=== PATIENT | female | born 1995 | race Caucasian/White ===

== ENCOUNTER 2018-10-14 10:06 | Emergency (ER) | payer MEDICAID, SELFPAY ==
[2018-10-14 10:07] VITALS: BP 94/57; PULSE 94; RESP 18; TEMP 36.6; O2SAT 98; BMI 25.2
--- NOTE | 2018-10-14 10:30 | ED.DCSUM_ITS ---
- ER Visit Summary Date of Service: 10/14/18 Chief Complaint: Runny nose and cough History of Present Illness: The patient is a 23 F no significant past medical history. Currently is 7 months due 12/22/2018. Patient states approximately 5 days has had a cough that is nonproductive. Nasal drainage is clear. Subjective fever. No shortness of breath. She had no abdominal pain. No vaginal bleeding. States she still feels the baby moving. States that she was urinating normally yesterday. Physical Examination: Very well-appearing young female. Coming by her young son. Vital signs stable initial blood pressure 94/57 she states she normally runs around 100. Heart rate 94. Pulse ox 90% on room air no signs of hypoxia. She is in no distress. H EENT exam normal. TMs normal. Posterior pharynx moist and pink. No erythema or exudate. No trouble swallowing or breathing. Neck nontender no lymphadenopathy no meningismus. Lungs clear to auscultation bilaterally. No rales rhonchi or wheezing. Heart regular rate and rhythm no murmur. Abdomen soft. Nondistended normal bowel sounds. Gravid nontender uterus. Patient moving all 4 extremities. Calves are nontender without edema or cords. Back nontender. Neurologically she is awake and alert. Test Results: None Emergency Department Course and Treatment: Viral URI. She is . She is comfortable just orally hydrating herself. Clinically she does not look dehydrated. Treatment Plan: Fluids and rest. [id number] symptomatic treatment for URI. Zofran as needed for nausea. Disposition: Discharge Impression: Viral URI 7 months This note was generated with [employer] dictation software. It may contain incorrect words, spelling, and punctuation that were not noted in review of the chart prior to signing ED Disposition - Plan for ED Patient: Chief Complaint: Cold Sx Referrals: Cliff Beltran MD [Primary Care Provider] -
--- NOTE | 2018-10-14 10:30 | ED.DEP ---
ED Disposition - Plan for ED Patient: Disposition: Home or Assisted Living Chief Complaint: Cold Sx Instructions: ED Upper Resp Infec No Abx Tx Prescriptions: Ondansetron [Zofran Odt] 4 mg PO Q8H PRN PRN #10 tab PRN Reason: Nausea Referrals: Cliff Beltran MD [Primary Care Provider] - As Needed Additional Instructions: The of fluids and rest. Zofran as needed for nausea. Follow-up with your doctors as needed.
[2018-10-14 10:47] VITALS: BP 124/62; PULSE 73; RESP 15; O2SAT 100
--- OUTSIDE RECORDS SUMMARY | 2018-12-19 01:30 | XMS RPT_ITS ---
:1995 Author Organization OHIP Care Team Providers Name Role Phone NATY SUAZO ([facility]) Attending Unavailable HEATH CALL Attending Unavailable HEATH CALL Referring Unavailable ZAHIRA REBOLLAR (CNM) Attending Unavailable HEATH CALL Referring Unavailable ONELIA LORENZ Attending Unavailable HEATH CALL Referring Unavailable KELECHI, ONELIA A Referring Unavailable DARION LOZANO Attending Unavailable PATTY HOPE Referring Unavailable HEATH CALL Attending Unavailable DARION LOZANO Referring Unavailable LORENZ, ONELIA A Referring Unavailable KELECHI, ONELIA A Attending Unavailable ANANT HOPERE Referring Unavailable HEATH CALL Attending Unavailable ZAHIRA REBOLLAR (CNM) Attending Unavailable HEATH CALL Referring Unavailable KARLENE KEEN Attending Unavailable HEATH CALL Referring Unavailable ZAHIRA REBOLLAR (CNM) Referring Unavailable ZAHIRA REBOLLAR (CNM) Attending Unavailable HEATH CALL Referring Unavailable James Catherine Attending Unavailable Cliff Beltran Primary Care Unavailable PROBLEMS PROBLEMS DATE TYPE CONDITION / CODE ATTENDING STATUS SOURCE 10/05/2018 Active Encounter for Active [facility] supervision of [facility] normal , Repository unspecified, second trimester / Z34.92(ICD-10) 10/05/2018 Active 27 weeks gestation NA Active [facility] of / [facility] Z3A.27(ICD-10) Repository 05/21/2018 Active Other diseases of Active [facility] blood and [facility] blood-forming Repository organs and certain disorders involving the immune mechanism complicating , unspecified trimester / O99.119(ICD-10) 05/21/2018 Active Thrombocytopenia, NA Active [facility] unspecified / [place] D69.6(ICD-10) Repository 07/20/2018 Active Encounter for Active [facility] supervision of [facility] other normal Repository , second trimester / Z34.82(ICD-10) 07/20/2018 Active 17 weeks gestation NA Active [facility] of / [place] Z3A.17(ICD-10) Repository 06/16/2018 Active Encounter for Active [facility] screening [place] for nuchal Repository translucency / Z36.82(ICD-10) 06/16/2018 Active Encounter for Active [facility] [place] screening, Repository unspecified / Z36.9(ICD-10) 06/16/2018 Active 12 weeks gestation NA Active [facility] of / [place] Z3A.12(ICD-10) Repository 06/16/2018 Active Family history of [facility] other congenital [place] malformations, Repository deformations and chromosomal abnormalities / Z82.79(ICD-10) 05/13/2018 Active Encounter for [facility] supervision of [facility] other normal Repository , unspecified trimester / Z34.80(ICD-10) 04/22/2018 Active Unknown / NA Active [facility] UNK(Unknown) [place] Repository PROCEDURES PROCEDURES No Procedure Records FoundRESULTS RESULTS PROGRESS Observed: 10/21/2018 Status: COMPLETED Source: [place] 11:03 AM [facility] REPOSITORY HNO ID: [id number] Author: Zahira Rebollar Service: (none) Author Type: Drill Sharpener Type: Progress Notes Filed: 10/21/2018 11:04 AM Note Text: CM - S: Shobha Rosales Titler presents for a routine OB visit at 31w1d. She denies LOF, VB, DFM or cramping/contractions. Been sick 2nd time in a few weeks. Had vomiting x 3 days. Now reports some URI sumtpoms and stuffiness. + Cough occasionally, denies fever. Takes pepcid for heartburn - had breakthrough heartburn last night for the first time. Reports some increased cracking on her hands this winter - desires a discussion re: salves/lotions/ointments that she can use for her hands. O: See flow sheet Gen: A+O x 3, NAD Abdomen: NT x 4 quadrants, S=D Extremities: No edema, bilateral hands with fine cracks and some erythema. A/P: 31w1d IUP. Normal . RTO 2 Weeks for follow up. Call with LOF, VB, DFM or cramping/contractions. 1. 31 weeks gestation of -[facility] teaching and PTL precautions reviewed. -Natural remedies for dry skin on hands reviewed - URINE OB DIP B/O Zahira Rebollar APRN.CNM EMERGENCY DEPARTMENT Observed: 10/14/2018 Status: F Source: [place] SUMMARY 4:05 PM [facility] REPOSITORY [facility] Medical Records Department [address] [place] [address] Emergency Department Summary 10/14/18 1026 MR#: [id number] Acct: [id number] Name: TITLERSHOBHA Rep #: [id number] : 1995 23 From: James Catherine MD PCP: Cliff Beltran MD Status: DEP ER - ER Visit Summary Date of Service: 10/14/18 Chief Complaint: Runny nose and cough History of Present Illness: The patient is a 23 F no significant past medical history. Currently is 7 months due 12/22/2018. Patient states approximately 5 days has had a cough that is nonproductive. Nasal drainage is clear. Subjective fever. No shortness of breath. She had no abdominal pain. No vaginal bleeding. States she still feels the baby moving. States that she was urinating normally yesterday. Physical Examination: Very well-appearing young female. Coming by her young son. Vital signs stable initial blood pressure 94/57 she states she normally runs around 100. Heart rate 94. Pulse ox 90% on room air no signs of hypoxia. She is in no distress. H EENT exam normal. TMs normal. Posterior pharynx moist and pink. No erythema or exudate. No trouble swallowing or breathing. Neck nontender no lymphadenopathy no meningismus. Lungs clear to auscultation bilaterally. No rales rhonchi or wheezing. Heart regular rate and rhythm no murmur. Abdomen soft. Nondistended normal bowel sounds. Gravid nontender uterus. Patient moving all 4 extremities. Calves are nontender without edema or cords. Back nontender. Neurologically she is awake and alert. Test Results: None Emergency Department Course and Treatment: Viral URI. She is . She is comfortable just orally hydrating herself. Clinically she does not look dehydrated. Treatment Plan: Fluids and rest. Adiu-rlm-ptbenki symptomatic treatment for URI. Zofran as needed for nausea. Disposition: Discharge Impression: Viral URI 7 months This note was generated with [employer] dictation software. It may contain incorrect words, spelling, and punctuation that were not noted in review of the chart prior to signing ED Disposition - Plan for ED Patient: Chief Complaint: Cold Sx Referrals: Cliff Beltran MD [Primary Care Provider] - What to do if you have Problems For any increased pain, shortness of breath, bleeding, nausea or vomiting, chest pain, or any unexpected problems, contact your Primary Care Provider. Call [facility] ([phone]) or report to the closest Emergency Room. Call 911 if necessary. 10/14/18 1465 <Electronically signed by James Catherine MD> Date James Catherine MD Cosigner Signature (If Indicated): Date CC: Cliff Beltran MD DISCHARGE INSTRUCTION Observed: 10/14/2018 Status: F Source: [place] 4:04 PM [facility] REPOSITORY [facility] Medical Records Department [address] [place] [address] Discharge Instruction 10/14/18 1030 MR#: [id number] Acct: [id number] Name: SHOBHA CHRIS Rep #: [id number] : 1995 23 From: James Catherine MD PCP: Cliff Beltran MD Status: DEP ER ED Disposition - Plan for ED Patient: Disposition: Home or Assisted Living Chief Complaint: Cold Sx Instructions: ED Upper Resp Infec No Abx Tx Prescriptions: Ondansetron [Zofran Odt] 4 mg PO Q8H PRN PRN #10 tab PRN Reason: Nausea Referrals: Cliff Beltran MD [Primary Care Provider] - As Needed Additional Instructions: The of fluids and rest. Zofran as needed for nausea. Follow-up with your doctors as needed. What to do if you have Problems For any increased pain, shortness of breath, bleeding, nausea or vomiting, chest pain, or any unexpected problems, contact your Primary Care Provider. Call [facility] ([phone]) or report to the closest Emergency Room. Call 911 if necessary. 10/14/18 1604 <Electronically signed by James Catherine MD> Date James Catherine MD Cosigner Signature (If Indicated): Date CC: Cliff Beltran MD CBC AND DIFFERENTIAL Collected: 10/05/2018 Status: F Source: [place] 11:[address] [facility] REPOSITORY TYPE CODE TESTS RESULT OUT OF REFERENCE UNITS RANGE LAB WBC 3.70-11.00 k/uL WBC High 12.44 LAB RBC 3.90-5.20 m/uL Low RBC 3.77 LAB HGB 11.5-15.5 g/dL Hemoglobin 11.7 LAB HCT 36.0-46.0 % Low Hematocrit 35.4 LAB MCV 80.0-100.0 fL MCV 93.9 LAB MCH 26.0-34.0 pG MCH 31.0 LAB MCHC 30.5-36.0 g/dL MCHC 33.1 LAB RDWCV 11.5-15.0 % RDW-CV 14.4 LAB PLTCT 150-400 k/uL Low Platelet Count 139 LAB MPV 9.0-12.7 fL MPV 11.8 LAB ANEUT % Neut% 77.1 LAB AANEUT 1.45-7.50 k/uL Abs Neut High 9.59 LAB ALYMP % Lymph% 14.1 LAB AALYMP 1.00-4.00 k/uL Abs Lymph 1.75 LAB AMONO % [place]% 8.1 LAB AAMONO <0.87 k/uL Abs [place] High 1.01 LAB AEOS % Eosin% 0.5 LAB AAEOS <0.46 k/uL Abs Eosin 0.06 LAB ABASO % Baso% 0.2 LAB AABASO <0.11 k/uL Abs Baso 0.03 LAB AUNRBC 0 /100 WBC NRBCs 0.0 LAB ABNRBC <0.01 k/uL Absolute nRBC <0.01 LAB DTYP DTYPE Auto Diff Performed By: #### CBCDIF #### [facility] [address] [place], [place] [address] 50G, 1HR GEST. Collected: 10/05/2018 Status: F Source: [place] GSCRN 11:27 AM [facility] REPOSITORY TYPE CODE TESTS RESULT OUT OF REFERENCE UNITS RANGE LAB GLUP 74-134 mg/dL Glucose 103 Screen, Preg Result Comment: [place] [employer] ([place]) guidelines state a gestational diabetes mellitus positive screen is made, in women not previously diagnosed with overt diabetes, when the 1 hr plasma glucose level is equal to or above 140 mg/dL. The [facility] [place] [facility] recommends a 135 mg/dL cutoff. Performed By: #### GLTGST #### [facility] [address], [place] [address] PROGRESS Observed: 09/23/2018 Status: COMPLETED Source: [place] 10:11 AM [place] [place] [place] REPOSITORY HNO ID: [id number] Author: Zahira Rebollar Service: (none) Author Type: Drill Sharpener Type: Progress Notes Filed: 09/23/2018 10:12 AM Note Text: CM - S: Shobha Rosales Titler presents for a routine OB visit at 27w1d. She denies LOF, VB, DFM or cramping/contractions. Patient reports throwing up last 24 hours, can keep crackers, water and Gatorade down this morning. Reports sore throat preceded her vomiting. Feels feverish, but has not taken temperature at home. Thermometer is packed away, patient is in the process of moving. Denies oliguria. Patient reports some lower abdominal crmaping/muscle strain from throwing up. LARC declination signed. Depression screening done, low risk. O: See flow sheet Gen: A+O x 3, NAD, Mucus membranes moist, lips dry and slightly cracked Abdomen: NT x 4 quadrants, S=D Extremities: No edema noted A/P: 27w1d IUP. Normal . RTO 2 Weeks for follow up. Call with LOF, VB, DFM or cramping/contractions. 1. Encounter for supervision of normal in second trimester, unspecified -1 hour GCT deferred to next week, patient can go to lab and have drawn at her convenience once she is not vomiting/sick -C teaching reviewed, PTL precautions reviewed -To continue PO hydration and BRAT diet as tolerated - URINE OB DIP B/O - CBC + DIFF; Future - GEST GLUC SCREEN, 1-HR, 50 GM, NON-FASTING; Future 2. 27 weeks gestation of Zahira Rebollar APRN.CNM SBIRT Shobha Rosales Titler was given the 's screening tool. Shobha answered as follows: OB Opioid Screening - Last Recorded (since 12/27/2017) Did any of your parents have a problem with alcohol or other drug use? No Does your partner have a problem with alcohol or other drug use? No In the past, have you had difficulties in your life because of alcohol or other drugs, including prescription medications? No In the past month have you drunk any alcohol or used other drugs? No Are you taking medication for pain during the either prescribed or not? No Based on the screen and further questions, she is considered at Low risk due to:No past or current use. Positive reinforcement of current behavior. Zahira Rebollar APRN.CNM PROGRESS Observed: 08/18/2018 Status: COMPLETED Source: [place] 9:[address] [facility] [place] REPOSITORY HNO ID: [id number] Author: Xiomy Meadows Service: (none) Author Type: Nurse Practitioner Type: Progress Notes Filed: 08/18/2018 9:31 AM Note Text: Subjective HPI Pt presents with c/o right eye irritation x 1.5 days. Thought contacts had irritated eye so took them out yesterday. This am right eye was matted shut and has had yellow drainage since then. Denies fever, chills, vision changes, eye pain, URI sx. Review of Systems Constitutional: Negative for chills and fever. HENT: Negative. Eyes: Positive for discharge and redness. Negative for blurred vision, double vision, photophobia and pain. Skin: Negative. Objective Physical Exam Constitutional: She is oriented to person, place, and time and well-developed, well-nourished, and in no distress. No distress. HENT: Head: Normocephalic. Right Ear: Hearing, tympanic membrane, external ear and ear canal normal. Left Ear: Hearing, tympanic membrane, external ear and ear canal normal. Nose: Nose normal. No mucosal edema. Mouth/Throat: Uvula is midline, oropharynx is clear and moist and mucous membranes are normal. No oropharyngeal exudate. Eyes: Pupils are equal, round, and reactive to light. EOM are normal. Right eye exhibits discharge. Left eye exhibits no discharge. Right conjunctiva is injected. Left conjunctiva is not injected. Pupils unequal: vision 20/20 via nedra card. Neck: Neck supple. Cardiovascular: Normal rate, regular rhythm and normal heart sounds. Exam reveals no gallop and no friction rub. No murmur heard. Pulmonary/Chest: Effort normal and breath sounds normal. No respiratory distress. She has no wheezes. She has no rales. Neurological: She is alert and oriented to person, place, and time. Skin: Skin is warm and dry. She is not diaphoretic. BP 100/60 Pulse 78 Temp 36.9 ?C (98.4 ?F) (Tympanic) Resp 16 Wt 62.6 kg (138 lb) LMP 03/17/2018 BMI 25.07 kg/m? .Patient presents with: Eye Problem: right eye burning x 2 days, matting x today-5 months PAST MEDICAL HISTORY Diagnosis Date - Asthma SPORTS INDUCED ASTHMA, NO INHALER USE SINCE 2007 - DEPRESSION - Migraine - Miscarriage 01/2013 - PMH - PAST MEDICAL HISTORY OF 05/06/99 normal color vision - depression - Recurrent UTI 07/25/2011 PAST SURGICAL HISTORY Procedure Laterality Date - [facility] ALLERGIES Patient has no known allergies. MEDICATIONS Ryaatsnw-Ht-Ezd-Fe-FA ( VITAMIN) tab Take 1 tablet by mouth. Mbdupmy-Dnnrpuatppqzu-Bdrbkhkv (EXCEDRIN MIGRAINE) 250-250-65 mg per tablet Take 1 tablet by mouth every 8 hours as needed. For migraine headaches. pediatric multivitamin no.76 (FLINTSTONES COMPLETE) chew Take by mouth. trimethoprim-polymyxin eye drops (POLYTRIM) ophthalmic solution Use 1 Drop in the right eye every 6 hours for 7 days. Use in the affected eye. FAMILY HISTORY Problem Relation Age of Onset - No Known Problems Mother - No Known Problems Father - No Known Problems Sister - No Known Problems Brother - No Known Problems Sister - No Known Problems Brother - Cervical Cancer Maternal Grandmother - other (gallbladder) Maternal Grandmother - Diabetes Maternal Grandfather - other (triple bypass) Maternal Grandfather - No Known Problems Paternal Grandmother - Alzheimer's Disease Paternal Grandfather - No Known Problems Son Social History Substance Use Topics - Smoking status: Current Every Day Smoker Years: 6.00 Types: Cigarettes - Smokeless tobacco: Never Used Comment: 1-2 cigarettes a day - Alcohol use No ASSESSMENT/PLAN: 1. Irritation of right eye - ICD9: 379.99, ICD10: H57.89 - POLYMYXIN B SULFATE 10,000 UNIT-TRIMETHOPRIM 1 MG/ML EYE DROPS Reviewed red flag SANDS acute eye. Pt verbalizes understanding. The patient is instructed to return or seek emergency treatment if symptoms become worse or with any acute change in condition. The patient verbalizes understanding and is in agreement with plan of care. Xiomy Meadows CNP CNOV Observed: 08/18/2018 Status: COMPLETED Source: [place] 8:30 AM [place] REPOSITORY [facility] TITLER,SHOBHA Rosales ([id number]) 1995 F Date Time Provider Department 08/18/18 8:30 AM XIOMY MEADOWS JEANINE During your visit today, we recorded the following information about you: Temperature Pulse Respiration Blood pressure 98.4 degrees 78/minute 16/minute 100/60 Weight 62.6 kg Xiomy Meadows APRN.CNP 08/18/2018 9:31 AM Signed Subjective HPI Pt presents with c/o right eye irritation x 1.5 days. Thought contacts had irritated eye so took them out yesterday. This am right eye was matted shut and has had yellow drainage since then. Denies fever, chills, vision changes, eye pain, URI sx. Review of Systems Constitutional: Negative for chills and fever. HENT: Negative. Eyes: Positive for discharge and redness. Negative for blurred vision, double vision, photophobia and pain. Skin: Negative. Objective Physical Exam Constitutional: She is oriented to person, place, and time and well-developed, well-nourished, and in no distress. No distress. HENT: Head: Normocephalic. Right Ear: Hearing, tympanic membrane, external ear and ear canal normal. Left Ear: Hearing, tympanic membrane, external ear and ear canal normal. Nose: Nose normal. No mucosal edema. Mouth/Throat: Uvula is midline, oropharynx is clear and moist and mucous membranes are normal. No oropharyngeal exudate. Eyes: Pupils are equal, round, and reactive to light. EOM are normal. Right eye exhibits discharge. Left eye exhibits no discharge. Right conjunctiva is injected. Left conjunctiva is not injected. Pupils unequal: vision 20/20 via nedra card. Neck: Neck supple. Cardiovascular: Normal rate, regular rhythm and normal heart sounds. Exam reveals no gallop and no friction rub. No murmur heard. Pulmonary/Chest: Effort normal and breath sounds normal. No respiratory distress. She has no wheezes. She has no rales. Neurological: She is alert and oriented to person, place, and time. Skin: Skin is warm and dry. She is not diaphoretic. BP 100/60 Pulse 78 Temp 36.9 ?C (98.4 ?F) (Tympanic) Resp 16 Wt 62.6 kg (138 lb) LMP 03/17/2018 BMI 25.07 kg/m? .Patient presents with: Eye Problem: right eye burning x 2 days, matting x today-5 months PAST MEDICAL HISTORY Diagnosis Date - Asthma SPORTS INDUCED ASTHMA, NO INHALER USE SINCE 2007 - DEPRESSION - Migraine - Miscarriage 01/2013 - PMH - PAST MEDICAL HISTORY OF 05/06/99 normal color vision - depression - Recurrent UTI 07/25/2011 PAST SURGICAL HISTORY Procedure Laterality Date - [facility] ALLERGIES Patient has no known allergies. MEDICATIONS Fdgmhkgt-Lq-Stj-Fe-FA ( VITAMIN) tab Take 1 tablet by mouth. Wkpuhvs-Puxvafepwmitf-Sktvoypz (EXCEDRIN MIGRAINE) 250-250-65 mg per tablet Take 1 tablet by mouth every 8 hours as needed. For migraine headaches. pediatric multivitamin no.76 (FLINTSTONES COMPLETE) chew Take by mouth. trimethoprim-polymyxin eye drops (POLYTRIM) ophthalmic solution Use 1 Drop in the right eye every 6 hours for 7 days. Use in the affected eye. FAMILY HISTORY Problem Relation Age of Onset - No Known Problems Mother - No Known Problems Father - No Known Problems Sister - No Known Problems Brother - No Known Problems Sister - No Known Problems Brother - Cervical Cancer Maternal Grandmother - other (gallbladder) Maternal Grandmother - Diabetes Maternal Grandfather - other (triple bypass) Maternal Grandfather - No Known Problems Paternal Grandmother - Alzheimer's Disease Paternal Grandfather - No Known Problems Son Social History Substance Use Topics - Smoking status: Current Every Day Smoker Years: 6.00 Types: Cigarettes - Smokeless tobacco: Never Used Comment: 1-2 cigarettes a day - Alcohol use No ASSESSMENT/PLAN: 1. Irritation of right eye - ICD9: 379.99, ICD10: H57.89 - POLYMYXIN B SULFATE 10,000 UNIT-TRIMETHOPRIM 1 MG/ML EYE DROPS Reviewed red flag SANDS acute eye. Pt verbalizes understanding. The patient is instructed to return or seek emergency treatment if symptoms become worse or with any acute change in condition. The patient verbalizes understanding and is in agreement with plan of care. Xiomy Meadows CNP Referring Provider: SELF [[id number]] Allergies As of Date: 08/18/2018 (No Known Allergies) Date Reviewed: 08/18/2018 Reviewed by: Ting Oviedo Ma - Fully Assessed Reason for Visit: Eye Problem [43] Cmt: right eye burning x 2 days, matting x today-5 months Reason For Visit History Recorded Primary Visit Diagnosis:Irritation of right eye [H57.89] Order(s):trimethoprim-polymyxin eye drops (POLYTRIM) ophthalmic solutionUse 1 Drop in the right eye every 6 hours for 7 days. Use in the affected eye.Disp: 1.4 mLRfl: 0 Prescriptions as of 08/18/2018 Sig: VITAMIN,CALCIUM,MINE* Take 1 tablet by mouth. ICXRZOA-WWFKRRMQMJQRF-CINIIKR* Take 1 tablet by mouth every * PEDIATRIC MULTIVITAMIN NO.76 * Take by mouth. POLYMYXIN B SULFATE 10,000 UN* Use 1 Drop in the right eye e* Problem List As Of Date 08/18/2018 Noted Resolved Recurrent UTI [N39.0] INVALID FOR*08/16/2014 More... Patient requested diagnostic testing [Z01.89] INVALID FOR*08/16/2014 More... History of asthma [Z87.09] INVALID FOR*05/04/2018 More... History of depression [Z86.59] INVALID FOR*05/04/2018 More... Migraine [G43.909] INVALID FOR*05/04/2018 Normal [Z34.90] INVALID FOR*04/12/2015 More... Hyperemesis [R11.10] INVALID FOR*08/16/2014 Hyperemesis gravidarum [O21.0] INVALID FOR*11/21/2014 Bacteriuria, asymptomatic in [O99.89,*INVALID FOR*04/12/2015 Thrombocytopenia complicating (HCC) [*INVALID FOR*04/12/2015 More... Support system deficit [Z65.8] INVALID FOR*05/04/2018 More... Uncertain dates, antepartum [Z34.90] INVALID FOR*05/04/2018 More... Tobacco use in , antepartum [O99.330] INVALID FOR*05/04/2018 More... Nausea/vomiting in [O21.9] INVALID FOR*05/04/2018 More... Tobacco use during , antepartum [O99.3*INVALID FOR* More... History of depression [Z87.59, Z86.5*INVALID FOR* More... Family history of anencephaly [Z82.79] INVALID FOR* More... Patient requested diagnostic testing [Z01.89] INVALID FOR* More... History of loss in prior , c*INVALID FOR* More... Thrombocytopenia affecting (HCC) [O99*INVALID FOR* More... Nonintractable migraine [G43.009] INVALID FOR* More... Group B streptococcal bacteriuria [R82.71] INVALID FOR* More... Prescriptions ordered this encounter Disp Refills Start End POLYMYXIN B SULFATE 10,000 UNIT-TRIM* 1.4 * 0 08/18/2018 08/25/2018 Route: RIGHT EYE Sig: Use 1 Drop in the right eye every 6 hours for 7 days. Use in the affected eye. Encounter Status:Closed by XIOMY MEADOWS CNP on 08/18/18 PROGRESS Observed: 07/28/2018 Status: COMPLETED Source: [place] 4:12 PM [facility] [place] REPOSITORY HNO ID: [id number] Author: Onelia Lorenz Service: (none) Author Type: Physician Type: Progress Notes Filed: 07/28/2018 4:13 PM Note Text: A millan? fetus in utero with symmetric measurements Adequate growth (AGA). Estimated Date of Delivery: 12/22/18 EGA = 19w0d The anatomy appears normal. There are no evident malformations and /or effusions. No genetic markers are noted. The amniotic fluid volume is within normal limits. The patient was counseled as to the sonographic findings. The limitations of ultrasound in detecting malformations and chromosomal anomalies has been addressed. Body mass index is 24.75 kg/m?. RECOMMENDATIONS: - Follow up ultrasound as clinically indicated - Genetic testing is negative sequential. PROGRESS Observed: 07/26/2018 Status: COMPLETED Source: [place] 10:11 AM [facility] REPOSITORY HNO ID: [id number] Author: Onelia Lorenz Service: (none) Author Type: Physician Type: Progress Notes Filed: 07/26/2018 10:11 AM Note Text: The patient presents for a requested ultrasound. A full report is available in the imaging tab in [facility]. Onelia Lorenz MD, PhD MFM taxation consultant, [facility] CNOV Observed: 07/20/2018 Status: COMPLETED Source: [place] 10:30 AM [facility] [place] REPOSITORY Office Visit ([facility]) TITLER,SHOBHA Rosales ([id number]) 1995 F Date Time Provider Department 07/20/18 10:30 AM LAB [facility] MOB LABMOB During your visit today, we recorded the following information about you: Onelia Lorenz MD 07/26/2018 10:11 AM Signed The patient presents for a requested ultrasound. A full report is available in the imaging tab in Epic. Onelia Lorenz MD, PhD MFM taxation consultant, [facility] Referring Provider: ONELIA LORENZ [[id number]] Allergies As of Date: 07/20/2018 (No Known Allergies) Date Reviewed: 07/20/2018 Reviewed by: Delmy Bey Ma - Fully Assessed Visit Diagnoses:Encounter for screening for nuchal translucency [Z36.82] Encounter for screening of mother [Z36.9] 12 weeks gestation of [Z3A.12] Family history of spina bifida [Z82.79] Encounter for supervision of other normal in second trimester [Z34.82] 17 weeks gestation of [Z3A.17] Thrombocytopenia affecting (HCC) [O99.119, D69.6] Order(s):SEQUENTIAL SCRN SCND TRIMESTER [SQSEQL2] Order #: [id number]. #:[id number] CBC [SQCBC] Order #: [id number]. #:[id number] Prescriptions as of 07/20/2018 Sig: [id number]-IUKPBJS* Take 1 tablet by mouth every * PEDIATRIC MULTIVITAMIN NO.76 * Take by mouth. Problem List As Of Date 07/20/2018 Noted Resolved Recurrent UTI [N39.0] INVALID FOR*08/16/2014 More... Patient requested diagnostic testing [Z01.89] INVALID FOR*08/16/2014 More... History of asthma [Z87.09] INVALID FOR*05/04/2018 More... History of depression [Z86.59] INVALID FOR*05/04/2018 More... Migraine [G43.909] INVALID FOR*05/04/2018 Normal [Z34.90] INVALID FOR*04/12/2015 More... Hyperemesis [R11.10] INVALID FOR*08/16/2014 Hyperemesis gravidarum [O21.0] INVALID FOR*11/21/2014 Bacteriuria, asymptomatic in [O99.89,*INVALID FOR*04/12/2015 Thrombocytopenia complicating (HCC) [*INVALID FOR*04/12/2015 More... Support system deficit [Z65.8] INVALID FOR*05/04/2018 More... Uncertain dates, antepartum [Z34.90] INVALID FOR*05/04/2018 More... Tobacco use in , antepartum [O99.330] INVALID FOR*05/04/2018 More... Nausea/vomiting in [O21.9] INVALID FOR*05/04/2018 More... Tobacco use during , antepartum [O99.3*INVALID FOR* More... History of depression [Z87.59, Z86.5*INVALID FOR* More... Family history of anencephaly [Z82.79] INVALID FOR* More... Patient requested diagnostic testing [Z01.89] INVALID FOR* More... History of loss in prior , c*INVALID FOR* More... Thrombocytopenia affecting (HCC) [O99*INVALID FOR* More... Nonintractable migraine [G43.009] INVALID FOR* More... Encounter Status:Closed by ONELIA LORENZ MD on 07/26/18 CBC Collected: 07/20/2018 Status: F Source: [facility] 10:22 AM [facility] REPOSITORY TYPE CODE TESTS RESULT OUT OF REFERENCE UNITS RANGE LAB WBC 3.70-11.00 k/uL WBC 10.22 LAB RBC 3.90-5.20 m/uL Low RBC 3.84 LAB HGB 11.5-15.5 g/dL Hemoglobin 12.1 LAB HCT 36.0-46.0 % Hematocrit 37.4 LAB MCV 80.0-100.0 fL MCV 97.4 LAB MCH 26.0-34.0 pG MCH 31.5 LAB MCHC 30.5-36.0 g/dL MCHC 32.4 LAB RDWCV 11.5-15.0 % RDW-CV 13.6 LAB PLTCT 150-400 k/uL Low Platelet Count 147 LAB MPV 9.0-12.7 fL MPV 12.5 LAB ABSNUC <0.01 k/uL Absolute nRBC <0.01 Performed By: #### CBC #### [facility] [address] [address] SEQUENT SCRN SECOND Collected: 07/20/2018 Status: F Source: [facility] PATIENTS ONLY 10:22 AM [facility] REPOSITORY TYPE CODE TESTS RESULT OUT OF REFERENCE UNITS RANGE LAB SE1PAP MoM 0.85 SE1 RENEE A LAB SE2AFP MoM 1.21 SE2 AFP LAB SE2HCG MoM 0.65 SE2 hCG LAB SE2UE3 MoM 1.03 SE2 Unconj uE3 LAB SE2INH MoM 0.95 SE2 Dimrc Inhibin A LAB SE1HCG MoM 0.52 SE1 hCG LAB SE2INT Screen Negative SE2 Interp Screen Negative LAB SE2SDN SE2 Scrn Rsk <1:53821 Dn Synd LAB SE2ADN SE2 Age Rsk 1:1000 Dn Snyd LAB SE2STS SE2 Scr Rsk <1:33696 Trsmy 13 LAB SE2STR SE2 Scr Rsk <1:19585 Trsmy18 LAB SE2SON SE2 Scr Rsk 1:6000 ONTD LAB SE2RS View Seq Scrn results in Second Trim Scanned Documents link when available. LAB SEQLRV SEQ Staff Reviewed by Review Yoel Salazar, Ph.D. Performed By: #### SEQL2 #### [facility] [address] [address] Observed: 07/20/2018 Status: F Source: [facility] URINE CULTURE 9:45 AM [facility] REPOSITORY Sp. Request/Comment: - Specimen received in preservative Culture Result - 10,000 - <50,000 CFU/ml Streptococcus agalactiae (Group B streptococcus) --> ABNORMAL ALERT No further workup --> ABNORMAL ALERT 10,000 - <50,000 CFU/ml --> ABNORMAL ALER T Enterococcus faecalis --> ABNORMAL ALERT Cephalosporins, clindamycin, and TMP- SMX are not effective for the treatment of enterococcal infections. --> ABNORMAL ALERT Insignificant colony count. N o further workup. --> ABNORMAL ALERT <10,000 CFU/ml --> ABNORMAL ALERT Lactose positive gram negative bacilli --> ABNORMAL ALERT Insignificant colony count. No further workup. --> ABNORMAL ALERT 10,000 - <50,000 CFU/ml Normal urogenital vargas Performed By: #### URCUL #### [facility] [address] [place], [place] [address] PROGRESS Observed: 06/18/2018 Status: COMPLETED Source: [facility] 3:17 PM [facility] REPOSITORY HNO ID: [id number] Author: Onelia Lorenz Service: (none) Author Type: Physician Type: Progress Notes Filed: 06/18/2018 3:17 PM Note Text: The patient presents for a requested ultrasound. A full report is available in the imaging tab in Epic. Onelia Lorenz MD, PhD MFM taxation consultant, [facility] PROGRESS Observed: 06/16/2018 Status: COMPLETED Source: [facility] 11:29 AM [facility] REPOSITORY HNO ID: [id number] Author: Onelia Lorenz Service: (none) Author Type: Physician Type: Progress Notes Filed: 06/16/2018 11:36 AM Note Text: MFM attending note: A single intrauterine gestational sac is noted with a regular outline. There is no decidual hemorrhage. The yolk sac is visualized and shows normal shape and echogenicity. A living single fetus is noted. The heart rate is within normal range. The CRL corresponds to the gestational age. Estimated Date of Delivery: 12/22/18 EGA = 13w0d The difference between the LMP dates and the sonar dates is < 7days. Therefore, I changed her MALCOLM to the LMP based MALCOLM. Negative NT screen for Trisomy 21. The sensitivity of nuchal translucency measurement for Trisomy 21 is ~60%. The anatomy appears normal in the areas visualized. T The FOB had a baby with anencephaly. The risk for ONTD is 2%. The skull is well visualized and appears normal. Endovaginal US was performed to visualize the skull, brain, and the spine. No anomalies are noted. The limitations of ultrasound have been discussed. RECOMMENDATIONS: - The patient requested the sequential screening. The test has been ordered - Ultrasound examination at 18 weeks to visualize the anatomy and reevaluate the neural axis Onelia Lorenz MD CNOV Observed: 06/16/2018 Status: COMPLETED Source: [facility] 10:30 AM [facility] REPOSITORY Office Visit (LABMOB) TITLER,SHOBHA Rosales ([id number]) 1995 F Date Time Provider Department 06/16/18 10:30 AM [facility] LAB[facility]B During your visit today, we recorded the following information about you: Onelia Lorenz MD 06/18/2018 3:17 PM Signed The patient presents for a requested ultrasound. A full report is available in the imaging tab in Epic. Onelia Lorenz MD, PhD MFM taxation consultant, [facility] Referring Provider: ONELIA LORENZ [[id number]] Allergies As of Date: 06/16/2018 (No Known Allergies) Date Reviewed: 06/16/2018 Reviewed by: Onelia Lorenz - Fully Assessed Visit Diagnoses:Encounter for screening for nuchal translucency [Z36.82] Encounter for screening of mother [Z36.9] 12 weeks gestation of [Z3A.12] Family history of spina bifida [Z82.79] Order(s):SEQUENTIAL SCRN FRST TRIMESTER [SQSEQL1] Order #: [id number]. #:[id number] Prescriptions as of 06/16/2018 Sig: CEPHALEXIN 500 MG CAPSULE Take 1 capsule by mouth four * Patient not taking: Reported on 06/01/2018 PEDIATRIC MULTIVITAMIN NO.76 * Take by mouth. Problem List As Of Date 06/16/2018 Noted Resolved Recurrent UTI [N39.0] INVALID FOR*08/16/2014 More... Patient requested diagnostic testing [Z01.89] INVALID FOR*08/16/2014 More... History of asthma [Z87.09] INVALID FOR*05/04/2018 More... History of depression [Z86.59] INVALID FOR*05/04/2018 More... Migraine [G43.909] INVALID FOR*05/04/2018 Normal [Z34.90] INVALID FOR*04/12/2015 More... Hyperemesis [R11.10] INVALID FOR*08/16/2014 Hyperemesis gravidarum [O21.0] INVALID FOR*11/21/2014 Bacteriuria, asymptomatic in [O99.89,*INVALID FOR*04/12/2015 Thrombocytopenia complicating (HCC) [*INVALID FOR*04/12/2015 More... Support system deficit [Z65.8] INVALID FOR*05/04/2018 More... Uncertain dates, antepartum [Z34.90] INVALID FOR*05/04/2018 More... Tobacco use in , antepartum [O99.330] INVALID FOR*05/04/2018 More... Nausea/vomiting in [O21.9] INVALID FOR*05/04/2018 More... Tobacco use during , antepartum [O99.3*INVALID FOR* More... History of depression [Z87.59, Z86.5*INVALID FOR* More... Family history of anencephaly [Z82.79] INVALID FOR* More... Patient requested diagnostic testing [Z01.89] INVALID FOR* More... History of loss in prior , c*INVALID FOR* More... Thrombocytopenia affecting (HCC) [O99*INVALID FOR* More... Encounter Status:Closed by ONELIA LORENZ MD on 06/18/18 SEQUENT SCRN FIRST Collected: 06/16/2018 Status: F Source: [facility] PATIENTS ONLY 10:28 AM CLINIC MAIN CAMPUS REPOSITORY TYPE CODE TESTS RESULT OUT OF REFERENCE UNITS RANGE LAB SE1PAP MoM 0.81 SE1 RENEE A LAB SE1HCG MoM 0.52 SE1 hCG LAB SE1INT Final result pending second Final trimester SE1 result pending sample Interp second trimester sample LAB SE1SDN SE1 Scrn <1:12783 Rsk Dn Synd LAB SE1ADN 1:770 SE1 Age Rsk Dn Synd LAB SE1STR SE1 Scr <1:28620 Rsk Trsmy18 LAB SE1ATR SE1 Age 1:2400 Rsk Trsmy18 LAB SE1RS View Seq Scrn results in First Trim Scanned Documents link when available. LAB SEQLRV SEQ Staff Reviewed by Review Quinton Rivera MD, PhD ([id number]) Performed By: #### SEQL1 #### [facility] [address] [place] [id number] PROGRESS Observed: 06/01/2018 Status: COMPLETED Source: [facility] 2:[address] [facility] [place] REPOSITORY HNO ID: [id number] Author: Zahira Rebollar Service: (none) Author Type: Drill Sharpener Type: Progress Notes Filed: 06/01/2018 2:50 PM Note Text: CM - S: Shobha Rosales Titler presents for a routine OB visit at 10w0d. She denies LOF, VB, or cramping/contractions. She reports that her N/V is improving. No other issues reported. Mild thrombocytopenia noted - will recheck CBC in 1-2 months. O: See flow sheet Gen: A+O x 3, NAD Abd: S=D, retroverted uterus noted on exam, +CA c/w dating noted on limited TAUS Extremities: No edema in LE A/P: 10w0d IUP. Mild thrombocytopenia. RTO 2 Weeks for follow up. Call with LOF, VB, DFM or cramping/contractions. 1. Encounter for supervision of other normal in first trimester -Discussion re: mild thrombocytopenia done including implications for labor and if continued low platelet count noted. Will reassess Plt count in 1-2 months. - URINE OB DIP B/O 2. 10 weeks gestation of -NT scan with first trimester screening in 2 weeks - URINE OB DIP B/O Zahira Rebollar APRN.JARAD CNCO Observed: 05/19/2018 Status: COMPLETED Source: [facility] 12:00 AM [facility] REPOSITORY Letter [facility] [address] [place], [place] [id number] 05/19/2018 RE: Shobha Rosales Titler : 1995 To Whom It May Concern: This is to verify that the above captioned patient is with a millan interuterine pregnancyand her Estimated Date of Delivery: 12/28/18. Sincerely, Kaia Molina CNM CYSTIC FIBROSIS SCR Collected: 05/13/2018 Status: F Source: [facility] 12:13 PM [facility] REPOSITORY TYPE CODE TESTS RESULT OUT OF REFERENCE UNITS RANGE LAB CFNGST CF [id number] (NOTE) Brandan Report Result Comment: Performing Pathologist: Tamy King M.D., Ph.D. RESULT: CFTR (RefSeq [id number]): No variant detected INTERPRETATION: The patient does not carry any of the 139 pathogenic genetic variants in the cystic fibrosis transmembrane regulator (CFTR) gene. A negative test result reduces the possibility that this individual is a carrier for cystic fibrosis (CF). However, this test does not detect all variants in the CFTR gene and it is possible that the patient could have a CFTR variant not included in this test. GUIDANCE: Cystic fibrosis (CF) is a multisystem genetic disease of sodium chloride transport that commonly involves the lungs, pancreas, intestines, liver, sweat glands and male reproductive system. CF is one of the most common inherited conditions among Caucasians and is diagnosed in approximately 1 in 3000 individuals in the [place] The condition is less common but occurs in all other racial and ethnic groups. CF has an autosomal recessive inheritance pattern and heterozygous carriers are unaffected. If both partners in a couple have a pathogenic variant, there is a 25% chance for a child to have CF. Genetic test results should be considered in the context of all relevant clinical information including patient phenotype, other laboratory results and family history. Genetic consultation may be beneficial for this individual and the family. Carrier Frequencies: : 1 in 28 Ashkenazi Gnosticism: 1 in 29 : 1 in 59 : 1 in 70 : 1 in 84 : 1 in 91 : 1 in 242 METHOD: The Illumina IVDeskDx Cystic Fibrosis 139-Variant Assay is a qualitative in vitro diagnostic system used to simultaneously detect 139 clinically relevant cystic fibrosis disease-causing mutations and variants of the cystic fibrosis transmembrane conductance regulator (CFTR) gene in genomic DNA isolated from human peripheral whole blood. The variants reported by the MiSeqDx Cystic Fibrosis 139-Variant Assay were specifically chosen because they represent the full set of clinically validated variants classified as CF- causing in the CFTR2 database at [facility], a product of the CFTR2 (Clinical and Functional Translation of CFTR) initiative. Briefly, multiplex short oligonucleotide primers are designed to hybridize to the genomic DNA regions of interests. Followed by primer extension and ligation, the ligation products are multiplex PCR amplified using primers that add index sequences for sample multiplexing, as well as common adapters required for cluster generation and sequencing on the MiSeqDx instrument. The MiSeq Staff Nurse Anesthetist processes base calls generated during primary analysis. Secondary analysis includes demultiplexing, FASTQ file generation, alignment, variant calling, and generation of variant-calling files (VCFs) containing information about CFTR variants found at specific positions in the reference genome. LIMITATIONS: The results should be used and interpreted in the context of a full clinical evaluation. The assay does not include all variants identified in the CFTR gene. Therefore, the failure to identify a variant does not guarantee that other CFTR variants are not present in the samples being analyzed. Variants identified by this assay vary in frequency among different populations. As with any hybridization-based assay, underlying variants in oligonucleotide-binding regions can affect the alleles being probed and, consequently, the calls made. The orientation of the PolyTG/PolyT variant, whether in cis/trans to the R117H variant, cannot be ascertained. PolyTG/PolyT are homopolymeric regions known to be difficult to interpret with sequence-based assays due to polymerase slippage. A 0.9% (4/448) miscall rate is reported for PolyTG/PolyT results. REFERENCES: [place] [employer] Committee on Genetics. ACOG committee opinion No. 486: Update on Carrier Screening for Cystic Fibrosis. Obstet Gynecol. 2011;117(4):4836-5555. Trey JL, Otto Diaz M, Esmer ALDRIDGE, Raphael PM. Cystic Fibrosis: A worldwide analysis of CFTR mutations-correlation with incidence data and application to screening. 2002. Hum Mutat 19:575-606. Meeta BARROW. Cystic fibrosis genetics: from molecular understanding to clinical application. Bernice Rev Sangita. 2015;16(1):45-56. Raphael PM, Sarita BJ, Lolly TB, Je FJ, Vicente C, Meeta BARROW, Jose Rafael MI, Liss CABALLERO, Gustabo J, Brady RB, MJ, Nir, III, PW. Guidelines for diagnosis of cystic fibrosis in newborns through older adults: Cystic Fibrosis Foundation consensus report. JPediatr. 2008;153:S4-S14. Werner WW, Meeta BARROW, Patrick NAGY, Fernanda SHERMAN, Elvin AVELAR, Lee JACOME. Laboratory standards and guidelines for population-based cystic fibrosis carrier screening. Sangita Med 2001;3:149-54. Matti SM, Sharyn JF, Lucio DL, Bob E, Meeta BARROW. CFTR-related disorders. Sully RA, William TC, Jama CR, Damien Donnelly, editors. Holdenws. [place] ([place]): [facility]; 2007. Available at www.ncbi.nlm.nih.gov/books/WDB2756. [Online] Updated Nov 16, 2007. Online Mendelian Inheritance in Man, OMIM. [facility], [place], [place]. Cystic fibrosis transmembrane conductance regulator; CFTR. JONY Number: *[id number]: 06/27/2014: World Wide Web URL: http://omim.org/ The Clinical and Functional Translation of CFTR (CFTR2). Available at http://www.cftr2.org/ [Online] MS Elvin, Meeta BARROW, Lee JACOME, Adriel WILLIAM, Patrick Donnelly, Suki M, Erica GE, Emery BW, Ty VM, Mary EM, Ramone CM, Fernanda SHERMAN, Joanie DR, Werner WW. Cystic fibrosis population carrier screenin revision of [employer] Gen[employer] mutation panel. Sangita Med. 2004;6:387-91. Performed By: #### CFNGS #### [facility] [address] [place], [place] [address] CBC Collected: 05/13/2018 Status: F Source: [facility] 12:[address] [facility] REPOSITORY TYPE CODE TESTS RESULT OUT OF REFERENCE UNITS RANGE LAB WBC 3.70-11.00 k/uL WBC 6.54 LAB RBC 3.90-5.20 m/uL RBC 4.00 LAB HGB 11.5-15.5 g/dL Hemoglobin 12.4 LAB HCT 36.0-46.0 % Hematocrit 36.2 LAB MCV 80.0-100.0 fL MCV 90.5 LAB MCH 26.0-34.0 pG MCH 31.0 LAB MCHC 30.5-36.0 g/dL MCHC 34.3 LAB RDWCV 11.5-15.0 % RDW-CV 12.9 LAB PLTCT 150-400 k/uL Low Platelet Count 145 LAB MPV 9.0-12.7 fL MPV 12.0 LAB ABSNUC <0.01 k/uL Absolute nRBC <0.01 Performed By: #### CBC, SYPHGX, RUBIGG, HBSAG, HIV12C #### [facility] [address] [address] SYPHILIS IGG WITH Collected: 05/13/2018 Status: F Source: [facility] 12:12 PM [place] REPOSITORY TYPE CODE TESTS RESULT OUT OF REFERENCE UNITS RANGE LAB SYPHQL Nonreactive Syphilis IgG, Nonreactive Qual Result Comment: No serological evidence of infection with T. pallidum. LAB SYPHLG AI Syphilis IgG <0.2 Result Comment: Antibody index is interpreted as follows: Non reactive SPECIMENS <=0.8 Weak reactive SPECIMENS 0.9 to 5.9 Reactive SPECIMENS >=6.0 Performed By: #### CBC, SYPHGX, RUBIGG, HBSAG, HIV12C #### [address] [address] RUBELLA IGG ANTIBODY Collected: 05/13/2018 Status: F Source: [facility] 12:12 [facility] REPOSITORY TYPE CODE TESTS RESULT OUT OF RANGE REFERENCE UNITS LAB RUBGQL Negative Abnormal Rubella IgG Positive Alert Ab, Qual Result Comment: Sample is considered positive for IgG antibodies to rubella virus. A positive result indicates previous exposure to Rubella virus or vaccination. LAB RUBQNT Index Value Rubella IgG Ab 1.43 Result Comment: Index values are interpreted as follows: Negative specimens <0.90 Equivocol specimens 0.90 to 0.99 Positive specimens >0.99 The magnitude of the measured result is not indicative of the amount of antibody present. Performed By: #### CBC, SYPHGX, RUBIGG, HBSAG, HIV12C #### [place] [address] [place] [address] HEPATITIS B SURF. AG Collected: 05/13/2018 Status: F Source: [place] 12:12 PM [facility] REPOSITORY TYPE CODE TESTS RESULT OUT OF REFERENCE UNITS RANGE LAB HBSAG Negative Hepatitis B Negative Surf. Ag Performed By: #### CBC, SYPHGX, RUBIGG, HBSAG, HIV12C #### [place] [address] [place] [address] HIV 12 COMBO (AG/AB) Collected: 05/13/2018 Status: F Source: [place] 12:12 PM [facility] REPOSITORY TYPE CODE TESTS RESULT OUT OF REFERENCE UNITS RANGE LAB HVAGAB Non Reactive HIV Non Reactive 12 Ag/Ab Result Comment: (NOTE) HIV Information: [place] Rev. Code 3701.243(E): This information has been disclosed to you from confidential records protected from disclosure by state law. You shall make no further disclosure of this information without the specific, written, and informed release of the individual to whom it pertains, or as otherwise permitted by state law. A general authorization for the release of medical or other information is not sufficient for the purpose of the release of HIV test results or diagnoses. Performed By: #### CBC, SYPHGX, RUBIGG, HBSAG, HIV12C #### [place] [address] TYPE AND SCR,PRENATL Collected: 05/13/2018 Status: F Source: [place] 12:11 PM [facility] REPOSITORY TYPE CODE TESTS RESULT OUT OF REFERENCE UNITS RANGE LAB %ABR O ABO/RH(D) POSITIVE LAB % Antibody NEG Screen Performed By: #### TSPN #### [place] [address] TOXICOLOGY SCREEN,UR Collected: 05/05/2018 Status: F Source: [place] 9:16 AM [facility] REPOSITORY TYPE CODE TESTS RESULT OUT OF REFERENCE UNITS RANGE LAB UPCP2 Negative Negative Phencyclidin e, Urine Result Comment: Cutoff threshold at 25 ng/mL. LAB UBENZ2 Negative Benzodiazepines, Ur Negative Result Comment: Cutoff threshold at 200 ng/mL. LAB UCOC2 Negative Cocaine, Negative Urine Result Comment: Cutoff threshold at 300 ng/mL. LAB UAMPH2 Negative Amphetamines, Urine Negative Result Comment: Cutoff threshold at 1000 ng/mL. LAB UTHC2 Negative Cannabinoids, Urine Negative Result Comment: Cutoff threshold at 50 ng/mL. LAB UOPI2 Negative Opiates, Negative Urine Result Comment: Cutoff threshold at 300 ng/mL. LAB UBARB2 Negative Barbiturates, Urine Negative Result Comment: Cutoff threshold at 200 ng/mL. LAB UETOH <11 mg/dL <11 Ethanol, Urine LAB UOXYC Negative Oxycodone, Negative Urine Result Comment: Cutoff threshold at 100 ng/mL. Comment: Immunoassay screen only. Cross reactivity with other substances can occur with immunoassay screening. Detection of any drug(s) in this urine toxicology panel is presumptive only. These tests are for med ica purposes only and should not be used for compliance monitoring, legal, or forensic use. Samples should be within normal physiological conditions (e.g. pH). This assay does not include adulteration/specimen validity testing. In clinical settings, confirmatory testing is at the practitioner's discretion [1]. If clinically indicated, confirmation by high specificity, quantitative methodology, which includes adulteration/spec imen validity testing, may be requested on the same specimen through Client Services ([phone]) if contacted within 48 hours of initial testing. [1]Substance Abuse and Mental Health Services Administration (2012). Clinical Drug Testing in Primary Care Technical Assistance Publication Series 32. Department of Health and Human Services, [place], p.10. These tests were developed and their performance characteristics determined by [facility] [place] ( [facility]). They have not been cleared or a pproved by the FDA. [facility] is regulated under CLIA as qualified to perform high complexity testing. These tests are used for clinical purposes. They should not be regarded as investigational or for research. Performed By: #### UTOX2 #### [facility] [address], [place] [address] Observed: 05/05/2018 Status: F Source: [place] URINE CULTURE 9:[address] [facility] REPOSITORY Sp. Request/Comment: - Best Practice Alert: To ensure optimal transport conditions and accurate culture results transfer urine specimens to rea top C and S preservative tube. Culture Result - >=100,000 CFU/ml Escherichia coli --> ABNORMAL ALERT ORGANISM: Escherichia coli METHOD: Minimum inhibitory concentration(Vitek) Antibiotic Interp MIGUEL Status Ampicillin SUSCEPTIBLE 8 F Gentamicin SUSCEPTIBLE <=1 F Trimeth sulfameth SUSCEPTIBLE <=20 F Cefazolin SUSCEPTIBLE <=4 F CLSI breakpoints for therapy of uncomplicated UTI's due to E.coli, K.pneumoniae, and P.mirabilis were applied and may be used to predict the activity of oral agents(cefaclor, cefdinir, cefpodoxime, cefp rozil, cefuroxime, cephalexin, loracarbef). Ciprofloxacin SUSCEPTIBLE <=0.25 F Nitrofurantoin SUSCEPTIBLE <=16 F Cefepime SUSCEPTIBLE <=1 F Piperacillin/Tazobac SUSCEPTIBLE <=4 F Ampicillin Sulbact SUSCEPTIBLE 4 F Ceftriaxone SUSCEPTIBLE <=1 F Meropenem SUSCEPTIBLE <=0.25 F Ertapenem SUSCEPTIBLE <=0.5 F Performed By: #### URCUL #### [facility] [address], [place] [address] GC/CHLAMYDIA AMPLIF Collected: 05/04/2018 Status: F Source: [facility] 3:15 PM [facility] REPOSITORY TYPE CODE TESTS RESULT OUT OF REFERENCE UNITS RANGE LAB GCCTSR GC/Chlam Amp Cervix Source LAB GCAMPL GC Negative Amplification for Neisseria gonorrhoeae by amplification. LAB CLAMPL Chlamydia Negative Amplif for Chlamydia trachomatis by amplification. Performed By: #### GCCT #### [address] [place], [place] [address] PROGRESS Observed: 05/04/2018 Status: COMPLETED Source: [facility] 2:27 PM [facility] REPOSITORY HNO ID: [id number] Author: Heath Call Service: (none) Author Type: Physician Type: Progress Notes Filed: 05/04/2018 3:32 PM Note Text: INITIAL OB ASSESSMENT Obstetric History T1 L1 SAB1 TAB1 Ectopic0 Multiple0 Live Births1 Name of Baby 1: Not recorded Date: 01/2013 GA: 10w0d Delivery: Not recorded Apgar1: Not recorded Apgar5: Not recorded Living: Not recorded Name of Baby 2: Carlitos Date: 03/03/15 GA: 37w6d Delivery: Vaginal, Spontaneous Delivery Apgar1: 8 Apgar5: 9 Living: Living Name of Baby 3: Not recorded Date: 06/2017 GA: 10w0d Delivery: Not recorded Apgar1: Not recorded Apgar5: Not recorded Living: Not recorded Name of Baby 4: Not recorded Date: Not recorded GA: Not recorded Delivery: Not recorded Apgar1: Not recorded Apgar5: Not recorded Living: Not recorded SBIRT Shobha R Titler was given the 4P's screening tool. Shobha answered as follows: OB Opioid Screening - Last Recorded (since 08/07/2017) Did any of your parents have a problem with alcohol or other drug use? No Does your partner have a problem with alcohol or other drug use? No In the past, have you had difficulties in your life because of alcohol or other drugs, including prescription medications? No In the past month have you drunk any alcohol or used other drugs? (!) Yes (1 drink March 31) Are you taking medication for pain during the either prescribed or not? No Based on the screen and further questions, she is considered at Low risk due to:Low level of use stopped prior to or immediately upon known . Positive reinforcement of current behavior. Plan to rescreen early third trimester. Heath Call MD HPI: Shobha Chris is a 22 year old female here to establish Obstetrical Care. Patient's last menstrual period was 03/17/2018. from OB Dating Form. Complaints: nausea without vomiting was planned. Obstetric History T1 L1 SAB1 TAB1 Ectopic0 Multiple0 Live Births1 Prior : never History of 4th degree laceration: No Patient's Risk Screening for delivery: History of abnormal pap: No Prior treatment for cervical dysplasia: none. History of STDs: None Tobacco use: Yes 1-2 cigs per day Caffeine use: Yes - 1 coffee AND pop per day Drug use: No Alcohol use: Yes - 1 drink on March 31 Multivitamin with Folic acid: Yes Occupation: OT per diem physical therapist assistant Gnosticism or heritage: No Would refuse blood transfusion if medically necessary: No No weight on file for this encounter. Patient BMI over 30? No Marital Status:Committed relationship Partner: Name: Prieto PAST MEDICAL HISTORY Diagnosis Date - Asthma SPORTS INDUCED ASTHMA, NO INHALER USE SINCE 2007 - DEPRESSION - Migraine - Miscarriage 01/2013 - PMH - PAST MEDICAL HISTORY OF 05/06/99 normal color vision - depression - Recurrent UTI 07/25/2011 PAST SURGICAL HISTORY Procedure Laterality Date - [facility] Current Outpatient Prescriptions on File Prior to Visit: pediatric multivitamin no.76 (FLINTSTONES COMPLETE) chew Take by mouth. Etonogestrel-Ethinyl Estradiol (NUVARING) 0.12-0.015 mg/24 hr vaginal ring Use 1 Each vaginally as directed. INSERT ONE(1) RING VAGINALLY AND LEAVE IN PLACE FOR 24 days, remove for 4 days and repeat (Patient not taking: Reported on 04/22/2018 ) propranolol (INDERAL) 80 mg tablet Take 1 tablet by mouth once daily. No current facility-administered medications on file prior to visit. Review of Systems: GENERAL: Negative for: Fever or Chills HEENT: Negative for: Headache, Impaired Vision, Ringing in Ears, Nosebleeds NECK: Negative for: Swelling, Pain, Stiffness RESPIRATORY: Negative for: Cough, Shortness of breath, Wheezing GASTROINTESTINAL: Negative for: Heartburn, Constipation, Diarrhea, Blood in stool, Vomiting MUSCULOSKELETAL: Negative for: Muscle or joint pain, stiffness, Joint swelling NEUROLOGIC/PSYCHIATRIC: Negative for: Weakness, Paralysis, Numbness, Tingling, Tremor, Anxiety, Depression, Memory loss SKIN: Negative for: Rash, Itching GENITOURINARY: Negative for: vaginal itching, vaginal discharge, hematuria or dysuria PHYSICAL EXAM: LMP 03/17/2018 GENERAL: pleasant female in no apparent distress DERMATOLOGY: Normal, without lesions, non-icteric and non-hirsute NECK: Supple, full range of motion, no adenopathy and thyroid normal CHEST: Normal inspiratory effort BREAST: soft, non-tender, symmetric, no dominant mass, normal nipple-areolar complex, no lymphadenopathy and no nipple discharge ABDOMEN: soft, non-tender and no masses NEURO: alert and oriented x3,exam grossly non-focal PELVIS: External genitalia normal without lesions. Perineal body intact. No vaginal or cervical lesions. Cervix closed. Uterus 6 week size. No adnexal masses or tenderness. Clinical Pelvimetry: Pelvimetry clinically assessed as adequate Limited OB ultrasound exam: single intrauterine and positive cardiac activity ASSESSMENT: 22 year old at 6 wks gestational age PLAN: 1) Patient oriented to practice. Discussed nutrition, folic acid supplementation, dietary guidelines, exercise, smoking, alcohol, caffeine, and drug use. Discussed routine OB labs including STD/HIV. Discussed aneuploidy screening options including serum screening and nuchal translucency. NT with . CF carrier screening discussed and accepted. 2) See problem list Follow up in 4 weeks or sooner prn. Heath Call MD PROGRESS Observed: 04/22/2018 Status: COMPLETED Source: [facility] 12:28 PM [facility] RE[facility] HNO ID: [id number] Author: Sally Mueller RN Service: (none) Author Type: (none) Type: Progress Notes Filed: 04/22/2018 12:38 PM Note Text: #: 1, Date: 01/2013, Sex: None, Weight: None, GA: 10w0d, Delivery: None, Apgar1: None, Apgar5: None, Living: None, Comments: No DANNV #: 2, Date: 03/03/15, Sex: Male, Weight: 6 lb 5 oz (2.863 kg), GA: 37w6d, Delivery: Vaginal, Spontaneous Delivery, Apgar1: 8, Apgar5: 9, Living: Living, Comments: SROM, augmented with pitocin, no lacerations, EBL 200cc #: 3, Date: 06/2017, Sex: None, Weight: None, GA: 10w0d, Delivery: None, Apgar1: None, Apgar5: None, Living: None, Comments: None #: 4, Date: None, Sex: None, Weight: None, GA: None, Delivery: None, Apgar1: None, Apgar5: None, Living: None, Comments: None CNNURSE Observed: 04/22/2018 Status: COMPLETED Source: [facility] 8:30 AM [facility] REPOSITORY Nurse Visit (WOO[facility]) TITLER,SHOBHA Rosales ([id number]) 1995 F Date Time Provider Department 04/22/18 8:30 AM [facility]URSE [facility] During your visit today, we recorded the following information about you: Last Period 03/17/18 Sally Mueller RN 04/22/2018 8:54 AM Signed SEQUENTIAL SCREENINGS The [facility] offers sequential screenings for women who are interested in screenings for chromosomal abnormalities and certain defects during a . The sequential screen combines ultrasound and blood tests to determine the risk of chromosomal abnormalities, including Down's Syndrome (Trisomy 21) and Trisomy 18, as well as open neural tube defects including spina bifida. Ultrasound examination is performed between 11 weeks and 13 weeks gestational age. Blood tests are drawn after the ultrasound and again later in the between 15 and 21 weeks gestational age. Please let your physician know if you are interested in this testing. It will require an appointment with our upstream biomanufacturing technician. This is not an ultrasound performed by a physician in our office during a routine visit. SIGNS AND SYMPTOMS OF LABOR 1. Contractions every 10 minutes or more often 2. Clear, pink, or brownish fluid (water) leaking from vagina 3. Feeling that baby is pushing down, pressure 4. Low, dull backache 5. Cramps that feel like a period 6. Cramps with or without diarrhea If you notice any of the above symptoms, contact our office at [phone] and ask to speak with a nurse. After hours, you can call [facility] at [phone] OR call [facility] at [phone] and ask to have the doctor architectural sales consultant paged. If you consider this an emergency, dial 9-1-1 or go to your nearest emergency department. Cord-Blood Banking Up until recently, the umbilical cord--along with the blood that remained in it after a baby was born and the cord cut--was simply discarded by the hospital. Then, in the late 1980s, researchers discovered that cord blood possessed unusual properties that made it useful in the treatment of patients with some cancers and other illnesses. While the actual process of collecting cord blood is straightforward, many parents are not even aware that this option now exists, much less familiar with all the issues involved. The case for saving your baby's cord blood The blood running back and forth between your baby and the placenta is full of immature cells called stem cells. Unlike embryonic stem cells, which have the ability to develop into any type of body cell, cord-blood stem cells already are locked into a certain, vital function: making all the different components of the blood, such as platelets, white blood cells, and red blood cells-serving, in effect, like bone marrow. When transfused into a patient whose own blood cells have faulty genetic coding or have been destroyed by chemotherapy or other cancer treatments, the cord-blood cells can implant themselves in the bone marrow and generate legions of new, healthy cells. These days, cord-blood transplants most commonly are used in cancer patients when a donor can't be found for a bone-marrow transplant. The treatment is particularly effective in young patients-the [facility] Blood [facility] reports a 70 percent success rate in children, but only 20 to 40 percent in adults. Researchers envision improving those odds and see many future applications as well, such as curing sickle cell disease and other blood-related genetic illnesses. So there is a possibility that your child, or someone else, may need these super-healthy and versatile cells one day. The drawbacks Aside from not knowing about this medical option, the main reason most people do not save their baby's stem cells is cost. In a private blood bank, the initial costs run from $275 to $1,500. Most also charge a yearly storage fee of $50 to $95. The advantage of using a private bank is that your sample is saved for only you to use. An alternative to private banking Public cord-blood zimmerman are an alternative. These cost no money to use, but your sample is not specifically saved for you. Another person with a more immediate need may use it. If the time should come that you need stem cells, yours may still be available, or you may use donations from other people without charge. You also can direct your sample to go to a relative with an immediate need if the blood type matches. Anyone else needing to use stem cells from a public bank who has not been a donor must pay for it, sometimes tens of thousands of dollars. Will my family benefit from saving stem cells? Right now, situations in which stem cells would be helpful are quite rare. As mentioned earlier, stem-cell transplants are most commonly used for rare genetic conditions and for some types of cancer, including leukemia and lymphoma. And even with these present uses, many questions remain. In cancer treatment, for example, some researchers are concerned about the wisdom of transplanting back into the child the same cells that already showed a propensity to become malignant. Doctors also aren't sure if the number of cells taken at the time of would be enough to treat a full-grown 16-year-old. It is also not completely clear how active the cells would be after years of being stored. The treatment is so new and rare, we just don't have the data yet to resolve these important issues. What do the experts say? The [employer] encourages philanthropic blood banking in public zimmerman, but only for families with a current or potential need. Blood-bank proponents encourage any kind of banking, pointing out that research is getting closer and closer to many diverse, live-saving applications. How do I decide? Each family must weigh the pros and cons for themselves. Some families say that any cost is worth their peace of mind. Others say that in the face of uncertainty about the effectiveness of the treatment, they will use their resources elsewhere. Some choose the middle ground of donating publicly, knowing that their sample might benefit another family, if not themselves. For more information, ask your doctor or nurse, and be sure to check out our article on the technical aspects of cord-blood banking. Technical Aspects of Cord-Blood Banking If you are interested in storing your baby's umbilical-cord blood because of its possible use in emerging medical treatments, you must make arrangements with a blood bank before your child is born. The collection procedure is quite simple: After delivery of the baby, the umbilical cord is clamped and cut in the usual way. The blood that remains in the umbilical-cord vessels is then collected in sterile containers. The blood may be removed from the cord with a large needle or allowed to flow freely, depending on the company's collection system. The containers may look like large test tubes or like the plastic bags used in a blood bank. It does not cause the mother or the baby any pain to collect the blood, and no blood is taken that the baby needs at the moment. The nurse, store receiving clerk, or physician will then label the samples, check them over with you, and package them for a special pickup arranged with a commercial carrier. When the blood arrives at the blood-bank facility, it is processed and the parents are notified. It is then kept in an advanced storage system for years. How do I know that my sample is safe? Power outages and bankruptcies potentially could threaten any organization, but so far none have been reported. It is to be hoped that the scientists in these zimmerman would arrange for safe transfer to another facility if the need arose. YOU MUST MAKE ARRANGEMENTS AHEAD OF TIME! Public cord-blood zimmerman--DONATION: [employer] [phone] [facility], Operated By [facility]'s Placental Blood Program, [facility] Umbilical Cord Blood Bank, Private cord-blood zimmerman--SAVING FOR YOUR OWN USE: [employer], (I think this is the least expensive) [employer] [phone] [employer], [phone]) [employer] [place] [facility], [phone], [phone] [place] [facility], Cord Blood [facility], ([phone]) [employer], An Internet search may provide you with additional listings. Sally Mueller RN 04/22/2018 12:38 PM Signed #: 1, Date: 01/2013, Sex: None, Weight: None, GA: 10w0d, Delivery: None, Apgar1: None, Apgar5: None, Living: None, Comments: No DANNV #: 2, Date: 03/03/15, Sex: Male, Weight: 6 lb 5 oz (2.863 kg), GA: 37w6d, Delivery: Vaginal, Spontaneous Delivery, Apgar1: 8, Apgar5: 9, Living: Living, Comments: SROM, augmented with pitocin, no lacerations, EBL 200cc #: 3, Date: 06/2017, Sex: None, Weight: None, GA: 10w0d, Delivery: None, Apgar1: None, Apgar5: None, Living: None, Comments: None #: 4, Date: None, Sex: None, Weight: None, GA: None, Delivery: None, Apgar1: None, Apgar5: None, Living: None, Comments: None Referring Provider: SELF [200] Allergies As of Date: 04/22/2018 (No Known Allergies) Date Reviewed: 04/22/2018 Reviewed by: Sally Mueller RN - Fully Assessed Reason for Visit: Care [86] Cmt: Pre-New OB Primary Visit Diagnosis:Encounter for supervision of normal first in first trimester [Z34.01] Other Visit Diagnoses:Tobacco use during , antepartum [O99.330] History of depression [Z87.59, Z86.59] Family history of anencephaly [Z82.79] Patient requested diagnostic testing [Z01.89] History of loss in prior , currently in first trimester [O09.291] Order(s):ARIANNA PT ED REVENUE CYCLE ADMINISTRATOR [] Order #: [id number]: 1 FUTURE ARIANNA PT ED REVENUE CYCLE ADMINISTRATOR [] Order #: [id number]: 1 FUTURE ARIANNA PT ED REVENUE CYCLE ADMINISTRATOR [] Order #: [id number]: 1 FUTURE ARIANNA WHAT TO EXPECT DURING YOUR HOSPITAL STAY [] Order #: [id number]: 1 FUTURE ARIANNA PT ED REVENUE CYCLE ADMINISTRATOR [] Order #: [id number]. #:[id number]: 1 ARIANNA PT ED REVENUE CYCLE ADMINISTRATOR [] Order #: [id number]. #:[id number]: 1 ARIANNA PT ED REVENUE CYCLE ADMINISTRATOR [] Order #: [id number]. #[id number]: 1 ARIANNA WHAT TO EXPECT DURING YOUR HOSPITAL STAY [] Order #: [id number]. #:[id number]: 1 Prescriptions as of 04/22/2018 Sig: PEDIATRIC MULTIVITAMIN NO.76 * Take by mouth. ETONOGESTREL-ETHINYL ESTRADIO* Use 1 Each vaginally as direc* Patient not taking: Reported on 04/22/2018 PROPRANOLOL 80 MG TABLET Take 1 tablet by mouth once d* Problem List As Of Date 04/22/2018 Noted Resolved Recurrent UTI [N39.0] INVALID FOR*08/16/2014 More... Patient requested diagnostic testing [Z01.89] INVALID FOR*08/16/2014 More... History of asthma [Z87.09] INVALID FOR* More... History of depression [Z86.59] INVALID FOR* More... Migraine [G43.909] INVALID FOR* Normal [Z34.90] INVALID FOR*04/12/2015 More... Hyperemesis [R11.10] INVALID FOR*08/16/2014 Hyperemesis gravidarum [O21.0] INVALID FOR*11/21/2014 Bacteriuria, asymptomatic in [O99.89,*INVALID FOR*04/12/2015 Thrombocytopenia complicating (HCC) [*INVALID FOR*04/12/2015 More... Support system deficit [Z65.8] INVALID FOR* More... Uncertain dates, antepartum [Z34.90] INVALID FOR* More... Tobacco use in , antepartum [O99.330] INVALID FOR* More... Nausea/vomiting in [O21.9] INVALID FOR* More... Tobacco use during , antepartum [O99.3*INVALID FOR* More... History of depression [Z87.59, Z86.5*INVALID FOR* More... Family history of anencephaly [Z82.79] INVALID FOR* More... Patient requested diagnostic testing [Z01.89] INVALID FOR* More... History of loss in prior , c*INVALID FOR* More... Other instructions from your clinician: SEQUENTIAL SCREENINGS The [facility] offers sequential screenings for women who are interested in screenings for chromosomal abnormalities and certain defects during a . The sequential screen combines ultrasound and blood tests to determine the risk of chromosomal abnormalities, including Down's Syndrome (Trisomy 21) and Trisomy 18, as well as open neural tube defects including spina bifida. Ultrasound examination is performed between 11 weeks and 13 weeks gestational age. Blood tests are drawn after the ultrasound and again later in the between 15 and 21 weeks gestational age. Please let your physician know if you are interested in this testing. It will require an appointment with our upstream biomanufacturing technician. This is not an ultrasound performed by a physician in our office during a routine visit. SIGNS AND SYMPTOMS OF LABOR 1. Contractions every 10 minutes or more often 2. Clear, pink, or brownish fluid (water) leaking from vagina 3. Feeling that baby is pushing down, pressure 4. Low, dull backache 5. Cramps that feel like a period 6. Cramps with or without diarrhea If you notice any of the above symptoms, contact our office at [phone] and ask to speak with a nurse. After hours, you can call [facility] at [phone] OR call [facility] at [phone] and ask to have the doctor architectural sales consultant paged. If you consider this an emergency, dial [phone]--1 or go to your nearest emergency department. Cord-Blood Banking Up until recently, the umbilical cord--along with the blood that remained in it after a baby was born and the cord cut--was simply discarded by the hospital. Then, in the late , researchers discovered that cord blood possessed unusual properties that made it useful in the treatment of patients with some cancers and other illnesses. While the actual process of collecting cord blood is straightforward, many parents are not even aware that this option now exists, much less familiar with all the issues involved. The case for saving your baby's cord blood The blood running back and forth between your baby and the placenta is full of immature cells called stem cells. Unlike embryonic stem cells, which have the ability to develop into any type of body cell, cord-blood stem cells already are locked into a certain, vital function: making all the different components of the blood, such as platelets, white blood cells, and red blood cells-serving, in effect, like bone marrow. When transfused into a patient whose own blood cells have faulty genetic coding or have been destroyed by chemotherapy or other cancer treatments, the cord-blood cells can implant themselves in the bone marrow and generate legions of new, healthy cells. These days, cord-blood transplants most commonly are used in cancer patients when a donor can't be found for a bone-marrow transplant. The treatment is particularly effective in young patients- the [facility] Cord Blood [facility] reports a 70 percent success rate in children, but only 20 to 40 percent in adults. Researchers envision improving those odds and see many future applications as well, such as curing sickle cell disease and other blood-related genetic illnesses. So there is a possibility that your child, or someone else, may need these super-healthy and versatile cells one day. The drawbacks Aside from not knowing about this medical option, the main reason most people do not save their baby's stem cells is cost. In a private blood bank, the initial costs run from $275 to $1,500. Most also charge a yearly storage fee of $50 to $95. The advantage of using a private bank is that your sample is saved for only you to use. An alternative to private banking Public cord-blood zimmerman are an alternative. These cost no money to use, but your sample is not specifically saved for you. Another person with a more immediate need may use it. If the time should come that you need stem cells, yours may still be available, or you may use donations from other people without charge. You also can direct your sample to go to a relative with an immediate need if the blood type matches. Anyone else needing to use stem cells from a public bank who has not been a donor must pay for it, sometimes tens of thousands of dollars. Will my family benefit from saving stem cells? Right now, situations in which stem cells would be helpful are quite rare. As mentioned earlier, stem-cell transplants are most commonly used for rare genetic conditions and for some types of cancer, including leukemia and lymphoma. And even with these present uses, many questions remain. In cancer treatment, for example, some researchers are concerned about the wisdom of transplanting back into the child the same cells that already showed a propensity to become malignant. Doctors also aren't sure if the number of cells taken at the time of would be enough to treat a full-grown 16-year-old. It is also not completely clear how active the cells would be after years of being stored. The treatment is so new and rare, we just don't have the data yet to resolve these important issues. What do the experts say? The [employer] encourages philanthropic blood banking in public zimmerman, but only for families with a current or potential need. Blood-bank proponents encourage any kind of banking, pointing out that research is getting closer and closer to many diverse, live-saving applications. How do I decide? Each family must weigh the pros and cons for themselves. Some families say that any cost is worth their peace of mind. Others say that in the face of uncertainty about the effectiveness of the treatment, they will use their resources elsewhere. Some choose the middle ground of donating publicly, knowing that their sample might benefit another family, if not themselves. For more information, ask your doctor or nurse, and be sure to check out our article on the technical aspects of cord-blood banking. Technical Aspects of Cord-Blood Banking If you are interested in storing your baby's umbilical- cord blood because of its possible use in emerging medical treatments, you must make arrangements with a blood bank before your child is born. The collection procedure is quite simple: After delivery of the baby, the umbilical cord is clamped and cut in the usual way. The blood that remains in the umbilical-cord vessels is then collected in sterile containers. The blood may be removed from the cord with a large needle or allowed to flow freely, depending on the company's collection system. The containers may look like large test tubes or like the plastic bags used in a blood bank. It does not cause the mother or the baby any pain to collect the blood, and no blood is taken that the baby needs at the moment. The nurse, store receiving clerk, or physician will then label the samples, check them over with you, and package them for a special pickup arranged with a commercial carrier. When the blood arrives at the blood- bank facility, it is processed and the parents are notified. It is then kept in an advanced storage system for years. How do I know that my sample is safe? Power outages and bankruptcies potentially could threaten any organization, but so far none have been reported. It is to be hoped that the scientists in these zimmerman would arrange for safe transfer to another facility if the need arose. YOU MUST MAKE ARRANGEMENTS AHEAD OF TIME! Public cord-blood zimmerman--DONATION: [employer] [phone] [facility], Operated By [facility]'s Placental Blood Program, [facility] Umbilical Cord Blood Bank, Private cord-blood zimmerman--SAVING FOR YOUR OWN USE: [employer], (I think this is the least expensive) [employer] [phone] [employer], (300) [employer] [place] [facility], [phone], [phone] [place] [facility], Cord [facility], ([phone]) [employer], An Internet search may provide you with additional listings. Disposition: Return in 12 days (on 05/04/2018) for New OB with Dr Call. Follow-up and Disposition History Recorded Encounter Status:Closed by SALLY MUELLER RN on 04/22/18 GC/CHLAMYDIA AMPLIF Collected: 12/01/2017 Status: F Source: [facility] 11:45 AM [facility] REPOSITORY TYPE CODE TESTS RESULT OUT OF REFERENCE UNITS RANGE LAB GCCTSR GC/Chlam Amp Cervix Source LAB GCAMPL GC Negative Amplification for Neisseria gonorrhoeae by amplification. LAB CLAMPL Chlamydia Negative Amplif for Chlamydia trachomatis by amplification. Performed By: #### GCCT #### [facility] [address] [place], [place] [address] PROGRESS Observed: 12/01/2017 Status: COMPLETED Source: [facility] 11:[address] [facility] REPOSITORY HNO ID: [id number] Author: Naty Ackerman) Chris Service: (none) Author Type: Nurse Practitioner Type: Progress Notes Filed: 12/01/2017 12:06 PM Note Text: Shobha Rosales Titler is a 22 year old who presents for her annual gynecologic exam without complaints. Menses: cycles every 21-25 days and 5-6 days of flow. Contraception: Nuva Ring HPV vaccine: Yes Last Pap: 2016 normal HPV: N/A History of abnormal pap: No Last mammogram: never Sexually active: Yes Patient concerns for STD exposure: No. Pain with intercourse: No Postcoital bleeding: No Obstetric History T1 L1 SAB1 TAB0 Ectopic0 Multiple0 Live Births1 PAST MEDICAL HISTORY Diagnosis Date - Asthma SPORTS INDUCED ASTHMA, NO INHALER USE SINCE 2007 - DEPRESSION - Migraine - Miscarriage 01/2013 - PMH - PAST MEDICAL HISTORY OF 05/06/99 normal color vision - depression - Recurrent UTI 07/25/2011 PAST SURGICAL HISTORY Procedure Laterality Date - NONE FAMILY HISTORY Problem Relation Age of Onset - Cervical Cancer Maternal Grandmother - gallbladder [OTHER] Maternal Grandmother - Diabetes Maternal Grandfather - triple bypass [OTHER] Maternal Grandfather - Alzheimer's Disease Paternal Grandfather SOCIAL HISTORY Social History Substance Use Topics - Smoking status: Current Every Day Smoker Packs/day: 0.50 Years: 6.00 Types: Cigarettes - Smokeless tobacco: Never Used Comment: 1-2 cigarettes a day - Alcohol use No REVIEW OF SYSTEMS Abdomen: No abdominal pain, nausea, vomiting, diarrhea, or constipation. No bloating, early satiety, indigestion, or increased flatulence. Bladder: No dysuria, gross hematuria, urinary frequency, urinary urgency, or incontinence. Breast: No breast lumps, nipple d/c, overlying skin changes, redness or skin retraction. Allergies and current medication updated:Yes EXAM: There were no vitals taken for this visit. GENERAL: pleasant, female in no apparent distress HEENT: Normocephalic, atraumatic, mucus membranes moist and no lesions NECK: Supple, full range of motion, no adenopathy and thyroid normal DERMATOLOGY: Normal, without lesions, non-icteric and non-hirsute BREAST: soft, non-tender, symmetric, no dominant mass, normal nipple-areolar complex, no lymphadenopathy and no nipple discharge CHEST: Normal inspiratory effort ABDOMEN: soft, non-tender and no masses PELVIC: external genitalia normal, normal Bartholin's glands, urethra, [place]'s glands, no vulvar lesions, no cervical lesions, good vaginal support, physiologic discharge present, normal appearing perineal body and perianal region, cervical lesion noted at 7 o'clock approximately 3 mm blue/purplish in color non-tender BIMANUAL: uterus normal size, shape and consistency, no adnexal masses, non-tender and no cervical motion tenderness RECTOVAGINAL: deferred. NEURO: alert and oriented x3,exam grossly non-focal EXTREMITIES: normal ASSESSMENT/PLAN: 1) Health maintenance: Pap/HPV up to date. Mammogram starting age 40. Nutrition, exercise and routine health maintenance exams reviewed. Calcium/Vitamin D supplementation information provided. HPV vaccine: completed series 2) Contraception: Nuva Ring. Contraceptive options reviewed and information provided. 3) STD screening: Accepted STD check for Gonorrhea and Chlamydia. 4) Follow up one year or sooner as needed NATY SUAZO CNP CNOV Observed: 12/01/2017 Status: COMPLETED Source: [place] 11:30 AM [facility] REPOSITORY Office Visit (WOOB) TITLER,SHOBHA Rosales ([id number]) 1995 F Date Time Provider Department 12/01/17 11:30 AM NATY SUAZO (RAO) WOOB During your visit today, we recorded the following information about you: Blood pressure Weight Height Last Period 53.5 kg 1.58 m 11/15/17 NATY SUAZO RAO 12/01/2017 12:06 PM Signed Shobha Bobby Titler is a 22 year old who presents for her annual gynecologic exam without complaints. Menses: cycles every 21-25 days and 5-6 days of flow. Contraception: Nuva Ring HPV vaccine: Yes Last Pap: 2016 normal HPV: N/A History of abnormal pap: No Last mammogram: never Sexually active: Yes Patient concerns for STD exposure: No. Pain with intercourse: No Postcoital bleeding: No Obstetric History T1 L1 SAB1 TAB0 Ectopic0 Multiple0 Live Births1 PAST MEDICAL HISTORY Diagnosis Date - Asthma SPORTS INDUCED ASTHMA, NO INHALER USE SINCE 2007 - DEPRESSION - Migraine - Miscarriage 01/2013 - PMH - PAST MEDICAL HISTORY OF 05/06/99 normal color vision - depression - Recurrent UTI 07/25/2011 PAST SURGICAL HISTORY Procedure Laterality Date - NONE FAMILY HISTORY Problem Relation Age of Onset - Cervical Cancer Maternal Grandmother - gallbladder [OTHER] Maternal Grandmother - Diabetes Maternal Grandfather - triple bypass [OTHER] Maternal Grandfather - Alzheimer's Disease Paternal Grandfather SOCIAL HISTORY Social History Substance Use Topics - Smoking status: Current Every Day Smoker Packs/day: 0.50 Years: 6.00 Types: Cigarettes - Smokeless tobacco: Never Used Comment: 1-2 cigarettes a day - Alcohol use No REVIEW OF SYSTEMS Abdomen: No abdominal pain, nausea, vomiting, diarrhea, or constipation. No bloating, early satiety, indigestion, or increased flatulence. Bladder: No dysuria, gross hematuria, urinary frequency, urinary urgency, or incontinence. Breast: No breast lumps, nipple d/c, overlying skin changes, redness or skin retraction. Allergies and current medication updated:Yes EXAM: There were no vitals taken for this visit. GENERAL: pleasant, female in no apparent distress HEENT: Normocephalic, atraumatic, mucus membranes moist and no lesions NECK: Supple, full range of motion, no adenopathy and thyroid normal DERMATOLOGY: Normal, without lesions, non-icteric and non-hirsute BREAST: soft, non-tender, symmetric, no dominant mass, normal nipple-areolar complex, no lymphadenopathy and no nipple discharge CHEST: Normal inspiratory effort ABDOMEN: soft, non-tender and no masses PELVIC: external genitalia normal, normal Bartholin's glands, urethra, [place]'s glands, no vulvar lesions, no cervical lesions, good vaginal support, physiologic discharge present, normal appearing perineal body and perianal region, cervical lesion noted at 7 o'clock approximately 3 mm blue/purplish in color non-tender BIMANUAL: uterus normal size, shape and consistency, no adnexal masses, non-tender and no cervical motion tenderness RECTOVAGINAL: deferred. NEURO: alert and oriented x3,exam grossly non-focal EXTREMITIES: normal ASSESSMENT/PLAN: 1) Health maintenance: Pap/HPV up to date. Mammogram starting age 40. Nutrition, exercise and routine health maintenance exams reviewed. Calcium/Vitamin D supplementation information provided. HPV vaccine: completed series 2) Contraception: Nuva Ring. Contraceptive options reviewed and information provided. 3) STD screening: Accepted STD check for Gonorrhea and Chlamydia. 4) Follow up one year or sooner as needed NATY SUAZO CNP Referring Provider: SELF [[id number]] Allergies As of Date: 12/01/2017 (No Known Allergies) Date Reviewed: 12/01/2017 Reviewed by: Naty Ackerman) Chris - Fully Assessed Primary Visit Diagnosis:Encounter for gynecological examination (general) (routine) without abnormal findings [Z01.419] Other Visit Diagnosis:Screen for STD (sexually transmitted disease) [Z11.3] Order(s):GC/CHLAMYDIA DNA DET [SQGCCAMP] Order #: [id number] Etonogestrel-Ethinyl Estradiol (NUVARING) 0.12-0.015 mg/24 hr vaginal ringUse 1 Each vaginally as directed. INSERT ONE(1) RING VAGINALLY AND LEAVE IN PLACE FOR 24 days, remove for 4 days and repeatDisp: 3 EachRfl: 3 Prescriptions as of 12/01/2017 Sig: ETONOGESTREL-ETHINYL ESTRADIO* Use 1 Each vaginally as direc* PROPRANOLOL 80 MG TABLET Take 1 tablet by mouth once d* Medication notes this encounter FLINTSTONES TAB CHEW ORAL >> Alejandrina Stevenson Ma 12/01/2017 11:34 AM >> ALEJANDRINA STEVENSON MA Dec 01, 2017 11:34 AM Pt no longer taking Problem List As Of Date 12/01/2017 Noted Resolved Recurrent UTI [N39.0] INVALID FOR*08/16/2014 More... Patient requested diagnostic testing [Z01.89] INVALID FOR*08/16/2014 More... History of asthma [Z87.09] INVALID FOR* More... History of depression [Z86.59] INVALID FOR* More... Migraine [G43.909] INVALID FOR* Normal [Z34.90] INVALID FOR*04/12/2015 More... Hyperemesis [R11.10] INVALID FOR*08/16/2014 Hyperemesis gravidarum [O21.0] INVALID FOR*11/21/2014 Bacteriuria, asymptomatic in [O99.89,*INVALID FOR*04/12/2015 Thrombocytopenia complicating (HCC) [*INVALID FOR*04/12/2015 More... Support system deficit [Z65.8] INVALID FOR* More... Uncertain dates, antepartum [Z34.90] INVALID FOR* More... Tobacco use during , antepartum [O99.3*INVALID FOR* More... Nausea/vomiting in [O21.9] INVALID FOR* More... Prescriptions ordered this encounter Disp Refills Start End ETONOGESTREL-ETHINYL ESTRADIOL 0.12 * 3 Ea* 3 12/01/2017 Route: VAGINAL Sig: Use 1 Each vaginally as directed. INSERT ONE(1) RING VAGINALLY AND LEAVE IN PLACE FOR 24 days, remove for 4 days and repeat Medications Discontinued During This Encounter albuterol HFA (VENTOLIN HFA) 90 mcg/* 1 In* 2 11/03/2016 12/01/2017 Route: INHALATION Sig: Inhale 2 Puffs as instructed every 4 hours as needed for Wheezing/Shortness of Breath. Disc: Reason for discontinue is not on file. PEDI MULTIVIT NO.7/FOLIC ACID (FLINT* 12/01/2017 Class: Historical Med Route: ORAL Sig: Take by mouth. Disc: Reason for discontinue is not on file. Etonogestrel-Ethinyl Estradiol (NUVA* 1 Ea* 0 11/19/2017 12/01/2017 Route: VAGINAL Sig: Use 1 Each vaginally as directed. INSERT ONE(1) RING VAGINALLY AND LEAVE IN PLACE FOR 24 days, remove for 4 days and repeat Disc: Reason for discontinue is not on file. Disposition: Return in 1 year (on 12/01/2018) for Annual Exam. Follow-up and Disposition History Recorded Encounter Status:Closed by NATY SUAZO on 12/01/17 ALLERGIES ALLERGIES DATE TYPE / CODE NAME / CODE REACTION SEVERITY SOURCE 10/14/2018 Drug No Known Unknown [facility] Allergy/416 Allergies/C23445 Hospital 050529(SNOM 0388(RXNORM) Repository ED CT) Drug NO KNOWN [facility] Class/96552 ALLERGIES [facility] [place] 1003(SNOMED Repository CT) ENCOUNTERS ENCOUNTERS ADMIT/DISCHARGE ACCOUNT ADMITTING ENCOUNTER LOCATION SOURCE NUMBER CLASS 10/21/2018/10/22/19 [id number] Ambulatory [place] [facility] [place] Repository 10/14/2018/10/14/19 [id number] Emergency [address] ing:ED Repository 10/05/2018/10/05/19 [id number] Ambulatory [place] [facility] [place] Repository 10/05/2018/10/06/19 [id number] Ambulatory [place] [facility] [place] Repository 09/23/2018/10/07/19 [id number] Ambulatory [place] [facility] [place] Repository 08/26/2018/08/27/20 [id number] Ambulatory [place] [facility] [place] Repository 08/18/2018/08/20/20 [id number] Ambulatory [place] [facility] [place] Repository 07/28/2018/07/29/20 [id number] Ambulatory [place] [facility] [place] Repository 07/20/2018/07/20/20 [id number] Ambulatory [place] [facility] [place] Repository 07/20/2018/07/21/20 [id number] Ambulatory [place] [facility] [place] Repository 06/28/2018/06/29/20 [id number] Ambulatory [place] [facility] [place] Repository 06/16/2018/06/16/20 [id number] Ambulatory [place] [facility] [place] Repository 06/16/2018/06/17/20 [id number] Ambulatory [place] [facility] [place] Repository 06/01/2018/06/03/20 [id number] Ambulatory [place] [facility] [place] Repository 05/13/2018/05/13/20 [id number] Ambulatory [place] [facility] [place] Repository 05/04/2018/05/05/20 [id number] Ambulatory [address] Repository 04/22/2018/04/23/20 [id number] Ambulatory [address] Repository 12/01/2017/12/08/19 [id number] Ambulatory [address] Repository PAYERS PAYERS ENCOUNTER GUARANTOR PAYER SUBSCRIBER SOURCE 10/14/2018 SHOBHA R Primary SHOBHA R Herrera [id number] W Insurance:CARESOURCEP TITLERDOB: Community [facility] olicy Number: [id number] [id number] Repository [address]Zmk: [phone]) Date:2018-10-14P O [phone] () [address]ATTN: [place] [address]SH: 10/14/2018 Secondary NOT GIVENRODRIGUEZ [place] Insurance:SELF PAY [facility] Number: Effective Repository Date:2018-10-14
== END 2018-10-14 10:49 | disposition home or self-care (01) ==
LOC: ED 10:40
PROVIDERS: Emergency Provider Emergency Medicine; Family Provider Family Medicine; PCP Family Medicine
DX: O26.899 Other specified pregnancy related conditions, unspecified trimester (principal); J06.9 Acute upper respiratory infection, unspecified; Z3A.00 Weeks of gestation of pregnancy not specified
CPT/HCPCS: 99282

== ENCOUNTER 2018-12-25 16:15 | Inpatient (IN) | payer MEDICAID, SELFPAY ==
[2018-12-25 15:30] VITALS: BMI 26.9
[2018-12-25 16:08] LABS: ROM Internal Control Test YES-OK TO RESULT pt. (Internal QC)
[2018-12-25 16:09] LABS: ROM Patient Test POSITIVE (Negative); Record Kit Lot#, ROM+ J7836
[2018-12-25] MEDS: Lactated Ringers 1,000 ML 50 ML IV ×2 (16:25→18:27)
[2018-12-25] MEDS: Oxytocin 30 units/NS 500 ml 30 UNITS/500 ML IV.SOLN IV (16:53)
[2018-12-25 17:01] LABS: Absolute Lymphocyte Count 1.85 X10^3/ul (0.83-4.51); Absolute Neutrophil Count 11.4 X10^3/uL (2.0-7.7); Basophil# 0.02 X10^3/uL; Basophil% 0.1 % (0-1); Eosinophil# 0.04 X10^3/uL; Eosinophils% 0.3 % (0-5); Lymphocyte # 1.85 X10^3/ul (4.0); Lymphocyte % 12.4 % (19-41); Mean Corp Hgb Conc 33.3 g/gl (32-36); Mean Corpuscular Hgb 30.1 pg (27.0-32.0); Mean Corpuscular Volume 90.3 fL (81-99); Monocyte% 8.7 % (0-10); Neutrophil # 11.43 X10^3/uL (2.7-7.7); Platelet Count 165 K/mm3 (150-450); RBC Distribution Width CV 14.6 % (11.6-14.6); RBC Distribution Width SD 48.2 fl (35.1-43.9); Red Blood Count 4.32 M/mm3 (4.2-5.4); White Blood Count 14.9 K/mm3 (4.4-11.0)
[2018-12-25 17:04] LABS: POSITIVE COUNT NO; POSITIVE DIFFERENTIAL NO; POSITIVE MORPHOLOGY NO
--- NOTE | 2018-12-25 18:57 | HP.PCM_ITS ---
- Problem List (1) Thrombocytopenia affecting Status: Acute (2) PROM (premature rupture of membranes) Status: Acute (3) Group B streptococcal bacteriuria Status: Acute (4) History of spontaneous Status: Acute (5) History of depression Status: Acute (6) Tobacco use during Status: Acute History Date of Admission: 12/25/18 Final MALCOLM: 12/22/18 Final MALCOLM Source: LMP Gestational age: 40 Weeks and 3 Days History of this : This is a 23 year-old, G [4], P [1021], at 40 weeks 3 days gestational age by LMP. Presented to L&D with complaint of ROM this afternoon. ROM plus positive and admitted to L&D. Irregular contractions and no discomfort. Allergies acetaminophen [From Vicodin] Adverse Reaction (Verified 12/25/18 18:34) Nausea/Vom/Diarrhea hydrocodone [From Vicodin] Adverse Reaction (Verified 12/25/18 18:34) Nausea/Vom/Diarrhea Home Medications: Home Medications Naproxen [Naprosyn] 500 mg PO BID #20 tablet 05/04/16 Penicillin V Potassium 500 mg PO 4X/DAY #40 tablet 05/04/16 Ondansetron [Zofran Odt] 4 mg PO Q8H PRN PRN #10 tab 10/14/18 Vit No.130/Iron/Folic [ Tablet] 1 each PO 12/25/18 Smoking Status: Former smoker Alcohol: None Number of Fetus(es): 1 Heart Tracin, moderate variability, accels, no decels, Category 1 TOCO: every 2-3 minutes, moderate History Past Pregnancies: Past Pregnancies Delivery Date Name GA/Weeks Outcome Route Weight Gender Labor Length Anesthesia Delivery Location Provider FOB Labs: HIV negative RPR negative HBsAG negative Rubella Immune GC/CT negative GBS positive bacteruria CF negative 12/22/18-PLT 142 Expected Infant Delivery Method: Spontaneous Vaginal Review of Systems Constitutional: Denies: Chills, Fever, Weight Change Eyes: Reports: Blurred vision HEENT: Denies: Head Aches, Sinus Congestion, Sinus Drainage Cardiovascular: Denies: Chest Pain, Palpitations Respiratory: Denies: Cough, Shortness of breath at rest, Sputum production Gastrointestinal: Denies: Abdominal Pain, Nausea, Vomiting Genitourinary: Denies: Dysuria Neurological: Denies: Numbness, Tingling, Focal weakness Psychiatric: Denies: Anxiety, Depression, Homicidal Ideations, Suicidal Ideations Physical Exam General: Alert, Oriented x3, No apparent distress HEENT: Atraumatic, Normocephalic Cardiovascular: Regular rate, Regular Rhythm, No murmurs Lungs: Clear to auscultation, Normal air movement, No rhonchi, No wheeze Abdomen: Bowel Sounds Present, Soft, Gravid Extremities:: No edema Neurological: Deep Tendon Reflexes 2+/4 and Symmetrical. Negative for: Clonus CARDIAC CATHETERIZATION TECHNICIAN: Normal external genitalia Estimated gestational size: Appropriate for gestational size Presentation: Cephalic Cervix Dilation (cm): 4 - Per nursing Station: -2 Effacement (%): 70 Assessment/Plan All Active Problems Thrombocytopenia affecting (Acute) PROM (premature rupture of membranes) (Acute) Group B streptococcal bacteriuria (Acute) History of spontaneous (Acute) History of depression (Acute) Tobacco use during (Acute) This is a 23 year-old, G [4], P [1021], at 40 weeks 3 days gestational age by LMP A:Premature Rupture of Membranes Category 1 FHT P: 1) Admit to L&D. Routine orders 2) Start pitocin for active management of PROM. PCN for GBS prophylaxis 3) Epidural for pain management if PLT in normal range 4) notified of patient status.
[2018-12-25] MEDS: fentaNYL-bupivacaine (epidural) 100 ML BAG EPIDURAL (19:18)
[2018-12-25] MEDS: Ondansetron 4 MG/2 ML Vial IV (22:22)
[2018-12-25] MEDS: Oxytocin 30 units/NS 500 ml 30 UNITS/500 ML IV.SOLN 334 UNITS IV (23:00)
--- NOTE | 2018-12-25 23:13 | PCM.OB.VAG ---
- Problem List (1) Thrombocytopenia affecting Status: Acute (2) PROM (premature rupture of membranes) Status: Acute (3) Group B streptococcal bacteriuria Status: Acute (4) History of spontaneous Status: Acute (5) History of depression Status: Acute (6) Tobacco use during Status: Acute (7) Vaginal delivery Status: Acute Vaginal Delivery Maternal Presentation: Spontaneous Rupture of Membranes Method of Induction: Pitocin - augmentation Amniotic Membrane Rupture Type: Spontaneous at home - PROM Amniotic Fluid Description: Clear Final MALCOLM: 12/22/18 Final MALCOLM Source: US <20 weeks Gestational age: 40 Weeks and 3 Days Date of Procedure: 12/25/18 Pre-Operative Diagnosis: PROM Post-Operative Diagnosis: Surgery/ Procedure Performed: Spontaneous Vaginal Delivery Type of Anesthesia: Epidural Description of Procedure: Progressed to complete. Epidural effective. of viable male over intact perineum. delivered with CAN x1 and body cord, delivered through without complications. APGARS 8 at 1 minute and 9 at 5 minutes respectively. placed on maternal abdomen, strong cry. Mouth and nares suctioned for secretions. Pitocin started for active 3rd stage management. Cord clamped and cut after pulsations ceased. Placenta delivered intact, 3 vessel cord. Perineum inspected and intact, no repair needed. Fundus firm and hemostasis achieved, 300ml EBL. Mom and baby stable, family bonding well. Planning to breastfeed. notified of patient delivery and status. Presentation: Vertex Placental Delivery Description: Spontaneous Placenta Disposition: [facility] Cord Vessel Description: 3 Vessels Cord Entanglement: Around neck x 1, loose - and around body once Estimated Blood Loss: 300ml Infant A gender: Male (1 minute): 8 (5 minute): 9 Episiotomy Description: None Laceration: None Medications given after delivery: IV Pitocin Complications: None
[2018-12-25] MEDS: Oxytocin 30 units/NS 500 ml 30 UNITS/500 ML IV.SOLN 167 UNITS IV (23:30)
[2018-12-26] MEDS: Ibuprofen 600 MG Tablet PO ×3 (01:15→14:39)
[2018-12-26] MEDS: 0.9% Saline Lock 10 ML Syringe IV (01:17)
[2018-12-26 03:45] VITALS: BP 97/53; PULSE 86; RESP 17; TEMP 36.3
[2018-12-26 09:00] VITALS: BP 105/61; PULSE 68; RESP 18; TEMP 36.4; O2SAT 97
[2018-12-26] MEDS: Acetaminophen 500 MG Tablet 1000 MG PO ×2 (09:39→20:58)
[2018-12-26 12:20] VITALS: BP 106/59; PULSE 70; RESP 18; TEMP 36.3; O2SAT 97
[2018-12-26 16:10] VITALS: BP 99/55; PULSE 76; RESP 18; TEMP 36.4; O2SAT 98
--- NOTE | 2018-12-26 17:49 | PCM.PN.OB ---
Patient Problems: Active and Suspected Problems Thrombocytopenia affecting (Acute) PROM (premature rupture of membranes) (Acute) Group B streptococcal bacteriuria (Acute) History of spontaneous (Acute) History of depression (Acute) Tobacco use during (Acute) Vaginal delivery (Acute) Subjective: Doing well per patient and nursing staff. Ambulating and taking PO without difficulty. Voiding and passing flatus. Tylenol and Motrin for pain. without difficulty. Denies DODGE,visual changes, chest pain, increased bleeding or clots. Planning D/C home tomorrow. - Physical Exam General: Alert, Oriented x3, Cooperative HEENT: Atraumatic, Normocephalic Neck: Trachea Midline Lungs: Clear to auscultation, Normal air movement, No rhonchi, No wheeze Cardiovascular: Regular rate, Regular Rhythm, No murmurs Abdomen: Bowel Sounds Present, Soft, Non Tender, - - Fundus firm 2 below U Extremities: No edema, - - Ranjan's negative Psych/Mental Status: Normal Affect, Appropriate Vital Signs Temp Pulse Resp BP Pulse Ox 97.6 F L 76 18 99/55 L 98 12/26/18 16:10 12/26/18 16:10 12/26/18 16:10 12/26/18 16:10 12/26/18 16:10 Oxygen Delivery Method Room Air Weight: 147 lb Body Mass Index (BMI) 26.9 Intake and Output for Last 24 Hours 12/24/18 12/25/18 12/26/18 23:59 23:59 23:59 Intake Total 1000 / 1000 Output Total 950 / 950 600 / 600 Balance 50 / 50 -600 / -600 Medical Necessity - Tobacco Use Smoking Status: Former smoker Assessment/Plan All Active Problems Thrombocytopenia affecting (Acute) PROM (premature rupture of membranes) (Acute) Group B streptococcal bacteriuria (Acute) History of spontaneous (Acute) History of depression (Acute) Tobacco use during (Acute) Vaginal delivery (Acute) A:PPD #1 P: 1) Routine . instructions given. 2) Planning D/C home tomorrow.
[2018-12-26 20:43] VITALS: BP 117/79; PULSE 79; RESP 18; TEMP 36.6; O2SAT 98
[2018-12-27 02:00] VITALS: BP 100/58; PULSE 68; RESP 18; TEMP 36.4; O2SAT 98
[2018-12-27] MEDS: Ibuprofen 600 MG Tablet PO ×2 (02:33→08:47)
[2018-12-27 08:00] VITALS: BP 116/87; PULSE 83; RESP 18; TEMP 36.3; O2SAT 98
--- NOTE | 2018-12-27 08:25 | DCINST_ITS ---
Discharge Diet: No Restrictions Discharge Activity: Return to Normal Activity, May not drive while taking narcotic pain medications., May Shower May resume sexual activity in: 4-6 weeks Additional Activity Instructions:: Nothing in the vagina for 4-6 weeks. You may return to work/school in 6 weeks. Call your doctor if your incision/area has: Continuous Slow Oozing, Sudden Increased Bleeding, Increased Pain/ Swelling, Increased Redness, Foul Smelling Discharge Call your doctor if you observe: Fever of 101 or Higher, Inability to urinate, Inability to have a bowel movement, Using more than one pad per hour Additional Instructions: If you experience any of the following, contact your healthcare provider. * Bleeding that soaks a pad every hour for 2 hours * Fever 100.4 or higher * Unrelieved incision or abdominal pain * Swelling, redness, discharge or bleeding from your incision or episiotomy site * Your incision begins to separate * Problems urinating (including inability to urinate or burning while urinating). * Visual changes * Severe headache * Flu-like symptoms * Pain or redness in one of both of your breasts * Pain, warmth, tenderness or swelling in your legs, especially the calf area * Frequent nausea and vomiting * Symptoms of depression or anxiety If you experience any of the following, call 911 or go to the nearest Emergency Room. * Chest pain * Problems breathing * Seizure activity * Partial or complete paralysis of a body part, slurred speech, weakness or drooping of the face, or a sudden inability to walk or hold your balance Allergies/Adverse Reactions: Allergies acetaminophen [From Vicodin] Adverse Reaction (Verified 12/25/18 18:34) Nausea/Vom/Diarrhea hydrocodone [From Vicodin] Adverse Reaction (Verified 12/25/18 18:34) Nausea/Vom/Diarrhea Medications to take at Discharge Naproxen [Naprosyn] 500 mg PO BID #20 tablet 05/04/16 Penicillin V Potassium 500 mg PO 4X/DAY #40 tablet 05/04/16 Ondansetron [Zofran Odt] 4 mg PO Q8H PRN PRN #10 tab 10/14/18 Vit No.130/Iron/Folic [ Tablet] 1 each PO 12/25/18 Please Follow Up With: Kaia Molina CNM When: Call to make an appointment with your provider in 2 weeks and 6 weeks post-. Primary Care Physician: Cliff Beltran MD [Primary Care Provider] - Test Results: Test results from this visit will be discussed in further detail at your follow- up appointment, if applicable. Proposed Discharge Date: 12/27/18
[2018-12-27] MEDS: Acetaminophen 500 MG Tablet 1000 MG PO (08:50)
--- NOTE | 2018-12-27 08:51 | NURSING ---
pain meds given with student nurse, Will Lizandro and assessment completed with him earlier. His documentation of the assessment is complete.
--- NOTE | 2018-12-27 08:54 | PN.OBGYN_ITS ---
Patient Problems: Active and Suspected Problems Thrombocytopenia affecting (Acute) PROM (premature rupture of membranes) (Acute) Group B streptococcal bacteriuria (Acute) History of spontaneous (Acute) History of depression (Acute) Tobacco use during (Acute) Vaginal delivery (Acute) Subjective: Patient sitting up in bed, denies any complaints or concerns at this time. Patient denies issues with urination or ambulation. She also denies any other issues with . Patient reports desire for discharge to home today with infant. Objective: VSS, Afebrile Nipples intact, no evidence of blisters, cracks or erythema Abdomen NT x 4 quadrants, FF midline @ 2FB below umbilicus +2/4 reflexes in LE, no edema in in LE, negative calf tenderness to palpation Scant rubra lochia, perineum well-approximated - Physical Exam General: Alert, Oriented x3, Cooperative HEENT: Atraumatic, Normocephalic Neck: Supple Lungs: Normal air movement Cardiovascular: Regular rate, Regular Rhythm Abdomen: Soft, Non Tender, Passing Flatus Extremities: No edema, Capillary Refill Less than 3 Seconds, No Calf Tenderness Skin: No rashes, No breakdown Musculoskeletal: No Tenderness to Palpation of Joints or Extremities Neurological: Cranial nerves II-XII grossly intact, Deep Tendon Reflexes 2+/4 and Symmetrical Psych/Mental Status: Normal Affect, Appropriate Vital Signs Temp Pulse Resp BP Pulse Ox 97.4 F L 83 18 116/87 H 98 12/27/18 08:00 12/27/18 08:00 12/27/18 08:00 12/27/18 08:00 12/27/18 08:00 Oxygen Delivery Method Room Air Weight: 147 lb Body Mass Index (BMI) 26.9 Intake and Output for Last 24 Hours 12/25/18 12/26/18 12/27/18 23:59 23:59 23:59 Intake Total 1000 / 1000 Output Total 950 / 950 600 / 600 Balance 50 / 50 -600 / -600 Medical Necessity - Tobacco Use Smoking Status: Former smoker Assessment/Plan All Active Problems Thrombocytopenia affecting (Acute) PROM (premature rupture of membranes) (Acute) Group B streptococcal bacteriuria (Acute) History of spontaneous (Acute) History of depression (Acute) Tobacco use during (Acute) Vaginal delivery (Acute) 23 y/o s/p , Normal Course P: 1) Discharge to home pending discharge 2) Anticipatory PP discharge teaching 3) RTC at 2 and 6 weeks PP to [facility]
[2018-12-27 11:15] VITALS: BP 107/54; PULSE 86; RESP 16; TEMP 36.8
--- NOTE | 2018-12-27 13:08 | NURSING ---
This nursing home admissions director reviewed the documentation and it is complete.
--- NOTE | 2018-12-31 17:29 | NURSING ---
no answer on follow up phone call left voicemail
== END 2018-12-27 13:20 | disposition home or self-care (01) | DRG 560 ==
LOC: WPOUT 16:20
PROVIDERS: Admitting Provider Obstetrics & Gynecology; Family Provider Family Medicine; PCP Family Medicine; Referring Provider Obstetrics & Gynecology; Visit Provider Obstetrics & Gynecology
DX: O99.12 Other diseases of the blood and blood-forming organs and certain disorders involving the immune mechanism complicating childbirth (principal); D69.6 Thrombocytopenia, unspecified; Z3A.40 40 weeks gestation of pregnancy; Z37.0 Single live birth; O69.81X0 Labor and delivery complicated by cord around neck, without compression, not applicable or unspecified; O99.820 Streptococcus B carrier state complicating pregnancy; Z87.891 Personal history of nicotine dependence; O42.92 Full-term premature rupture of membranes, unspecified as to length of time between rupture and onset of labor
CPT/HCPCS: 59025; 59050; 84112; 85025; 86850; 86900; 99218; J7120; A4216; G0378; J2405

== ENCOUNTER → 2020-02-13 08:43 | Outpatient (CLI) | payer MEDICAID, SELFPAY ==
--- NOTE | 2020-02-13 08:55 | RAD_ITS ---
STUDY: AIR-CONTRAST ESOPHAGRAM STUDY REASON FOR EXAM: Female, 24 years old. Vomiting FLUOROSCOPY TIME (if supplied): (0:32) minutes/seconds, 12 images. TECHNIQUE: Barium pill swallow with sips of water is performed at the beginning of the study without difficulty. Multiple barium swallows were performed under fluoroscopic monitoring. Multiple views of the esophagus, the upper stomach were performed. COMPARISON: None. FINDINGS: Barium pill swallow with sips of water is performed at the beginning of the study without difficulty. The esophagus appears normal in size and shape it shows unremarkable mucosal pattern. There is no evidence of hiatal hernia or abnormal vascular compression. RAD/Esophagus Dual Contrast IMPRESSION: Unremarkable study. Electronically Signed: Bill Duenas, at 15:39 EDT Tel , Service support ,
== END ==
PROVIDERS: Referring Provider Nurse Practitioner Adult Health; Visit Provider Nurse Practitioner Adult Health
DX: R09.89 Other specified symptoms and signs involving the circulatory and respiratory systems (principal)
CPT/HCPCS: 74221

== ENCOUNTER 2024-08-17 10:38 | Emergency (ER) | payer OTHER, SELFPAY ==
[2024-08-17 10:39] VITALS: BP 132/86; PULSE 110; RESP 15; TEMP 36.4; O2SAT 98; BMI 24.0
--- NOTE | 2024-08-17 10:52 | CT_ITS ---
STUDY: CT ABDOMEN AND PELVIS WITH CONTRAST REASON FOR EXAM: Female, 29 years old. RLQ pain and tenderness on palpation. RADIATION DOSAGE (If Supplied By Facility): CTDIvol = ( 10.00 ) mGy, DLP = ( 462.44 ) mGycm TECHNIQUE: Transaxial images were obtained from the dome of the diaphragm to the symphysis pubis without oral contrast. IV 100mL Isovue-300 was administered. Sagittal and coronal images were reconstructed. Individualized dose optimization techniques were used for this CT. COMPARISON: None. FINDINGS: The visualized lung bases are unremarkable. The visualized portions of the heart are within normal limits. Normal liver. Normal gallbladder and extrahepatic biliary system. Normal spleen. Normal pancreas. Normal bilateral adrenal glands. Normal right kidney. Normal left kidney. Normal visualized stomach. Normal small intestine. Moderate amount of fecal material is seen in the colon. The appendix is visualized and appears normal. Normal abdominal aorta. Normal inferior vena cava. Normal retroperitoneum. Normal urinary bladder. Follicles are seen in the right ovary. There is a 2.2 cm x 1.8 cm cyst in the left ovary. Minimal amount of free fluid is seen in the cul-de-sac. IUD is seen within the uterus. Normal abdominal wall. Normal osseous structures. CT/Abdomen/Pelvis W IV Cont ONLY IMPRESSION: Dominant left ovarian follicle. IUD is seen within the uterus. Minimal amount of free fluid is seen in the cul-de-sac. The appendix is unremarkable. Electronically Signed: Chase Archer MD at 11:43 EST ,
--- NOTE | 2024-08-17 10:53 | EX.ED.DYSGE1 ---
HPI History of Present Illness Chief Complaint: Abd Pain Informant: patient Narrative Narrative: Sent in here by her corporate development associate to rule out appendicitis. Dr. Olivo called down to the department prior to arrival. Patient reports pain during intercourse yesterday. Kept her up throughout the night. She has an IUD. No vaginal bleeding. External exam had a lot of pain during the speculum exam and tenderness. She has no abdominal surgery history. Report of her vaginal cultures were done with mild cervical motion tenderness, antibiotics will be prescribed by her corporate development associate. However due to mild pain right lower quadrant sent here to rule out appendicitis. No fevers or chills. No nausea or vomiting. No urinary symptoms. Prior similar symptoms: No PFSH PFSH Medical History no medical history Home Medications ?Medication ?Instructions ?Recorded ?Last Taken ?Type naproxen 500 mg tablet 500 mg PO BID #20 tabs 05/04/16 12/30/17 Rx vits no.130-ferrous fum 1 ea PO 12/25/18 12/22/18 History 27 mg iron-folic acid 800 mcg tablet ( Vitamin) acetaminophen 500 mg tablet 1,000 mg (2 x 500 mg) PO Q8H PRN 12/27/18 Unknown Rx PRN Pain Allergy/AdvReac Type Severity Reaction Status Date / Time acetaminophen (From Vicodin) AdvReac Nausea/Vom/ Verified 08/17/24 10:39 Diarrhea hydrocodone (From Vicodin) AdvReac Nausea/Vom/ Verified 08/17/24 10:39 Diarrhea Family History no significant family his Surgical History no surgical history Social History Smoking Status: Former smoker ROS ROS ED Constitutional Constitutional ED: Denies chills, fever(s) or sweats Eyes Eyes: Denies change in vision ENT ENT ED: Denies dysphagia or sore throat Cardiovascular Cardiovascular: Denies chest pain, leg edema, palpitations or racing heartbeat Respiratory/Chest Respiratory/Chest: Denies cough, dyspnea or dyspnea on exertion Gastrointestinal Gastrointestinal: Reports abdominal pain; Denies diarrhea, nausea or vomiting Genitourinary Genitourinary ED: Reports other Details: Pelvic pain, dyspareunia ; Denies dysuria, hematuria or urinary frequency Musculoskeletal Musculoskeletal: Denies back pain, extremity pain or neck pain Integumentary Denies rash or wounds Neurologic Neurologic: Denies headache(s), paresthesias or weakness EXAM Physical Exam Const Vital Signs: 08/17/24 10:39 Temperature 97.6 F L Temperature Source Temporal Pulse Rate 110 H Respiratory Rate 15 Blood Pressure 132/86 H Blood Pressure Mean 101 Pulse Ox 98 Oxygen Delivery Method Room Air Positive well nourished and well developed General Appearance ED: well developed and NAD HEENT Reports moist mucous membranes normocephalic and atraumatic Eyes EOMs intact bilaterally and conjunctivae normal General Eye ED: Yes normal appearance of both eyes Neck no lymphadenopathy and supple General: Negative for tenderness Chest Wall Chest: Negative for tenderness Resp normal respiratory effort and normal air movement Effort and Inspection: symmetric chest movement; Negative for respiratory distress Cardio regular rhythm and no murmurs Rate: tachycardic Peripheral Pulses: pulses 2+ throughout GI normal to inspection, nondistended, normoactive bowel sounds and non-tender GI Narrative: Tenderness right pelvic greater than right lower quadrant, no guarding or rebound. Negative Rovsing's. Palpation: Negative for guarding or rebound tenderness present Narrative: Deferred as performed in her corporate development associate office. Back/Spine no CVA tenderness and no thoracic nor lumbar tenderness Extremity normal to inspection General Extremety ED: Negative for edema or tenderness General Extremity: Negative for edema Neuro oriented x3 and no sensory deficits noted Sensorium / Orientation: awake and alert Skin no rashes or lesions noted and no wounds MDM MDM MDM Narrative Medical decision making narrative: Interventions / MDM: Differential diagnosis: Diagnosis considered but do not suspect: N/A My EKG interpretation: N/A Imaging independently reviewed and interpreted by myself: CT abdomen pelvis IV contrast: Normal appendix IUD in the uterus, 2.2 cm left ovarian cyst with mild free fluid in the cul-de-sac. External documents reviewed: N/A Test considered but not ordered:N/A ED course: Nontoxic tachycardia. Tender right pelvic more than right lower quadrant. IV established for labs. CT abdomen pelvis IV contrast rule out appendicitis as requested by her corporate development associate. 1210: CT normal appendix there is a left ovarian cyst with mild free fluid. Reassured on findings. She has ibuprofen at home. Her corporate development associate sent her in antibiotics for pelvic pain treatment. She will lease picker and take. She will follow-up with her corporate development associate. All questions were answered. Re-evaluation: stable Disposition discussed with patient/family/significant other: Patient Case discussed with consulting clinician: N/A This note was generated with [employer] dictation software. It may contain incorrect words, spelling, and punctuation that were not noted in checking the note before signing. Lab Data Attestation: I reviewed the patient's lab results. Labs: Laboratory Results - last 24 hr 08/17/24 08/17/24 10:47 11:00 WBC 11.7 H RBC 4.35 Hgb 13.5 Hct 40.0 MCV 92.0 MCH 31.0 MCHC 33.8 RDW Std Deviation 42.1 RDW Coeff of Brandan 12.5 Plt Count 134 L MPV 13.3 H Immature Gran % (Auto) 0.500 Neut % (Auto) 83.0 H Lymph % (Auto) 10.4 L [place] % (Auto) 5.3 Eos % (Auto) 0.5 Baso % (Auto) 0.3 Absolute Neuts (auto) 9.7 H Absolute Lymphs (auto) 1.22 Nucleated RBC % 0 Sodium 137 Potassium 3.5 Chloride 108 H Carbon Dioxide 24.0 Anion Gap 6 BUN 11 Creatinine 0.78 Estim Creat Clear Calc 86.45 Est GFR (MDRD) Af Amer 110 Est GFR (MDRD) Non-Af 91 BUN/Creatinine Ratio 14.1 Glucose 95 Calcium 8.9 Urine Test Negative Radiography Diagnostic Testing: Clinical Impression(s) from Imaging Studies Abdomen/Pelvis CT 08/17/24 10:52 IMPRESSION: Dominant left ovarian follicle. IUD is seen within the uterus. Minimal amount of free fluid is seen in the cul-de-sac. The appendix is unremarkable. Electronically Signed: Chase Archer MD at 11:43 EST , Discharge Plan Triage Chief Complaint: Abd Pain ED Provider: Earnest Odom Dx/Rx/DC Orders Clinical Impression: Abdominal pain, Ovarian cyst Instructions: Abdominal Pain, ED Ovarian Cyst Prescriptions: No Action naproxen 500 MG tablet 500 mg PO BID Qty: 20 0RF vit no.[id number] [ Vitamin] 1 EACH tablet 1 ea PO acetaminophen 500 MG tablet 1,000 mg PO Q8H PRN PRN (Reason: Pain) 0RF Stand Alone Forms: ED Work / School Excuse Primary Care Provider: PodlogSabina cordero NP Referrals: Kindra Mcintyre MD [Med Staff - Active Staff] - 1-2 Weeks Sabina Renner NP, TABLEAU ADMINISTRATOR-C [Primary Care Provider] - Activity Restrictions/Additional Instructions: CT with normal appendix. Left ovarian cyst of 2.2 cm. Labs are stable. Use ibuprofen 600 mg every 6 hours as needed. Take antibiotic prescribed by your corporate development associate. Follow-up with your corporate development associate. Print Language: Afghan Disposition Disposition: Home, Self Care Discharge Date/Time: 08/17/24 12:19
[2024-08-17 11:07] LABS: Absolute Lymphocyte Count 1.22 X10^3/uL (0.83-4.51); Absolute Neutrophil Count 9.7 X10^3/uL (2.0-7.7); Basophil# 0.04 X10^3/uL; Basophil% 0.3 % (0-1); Eosinophil# 0.06 X10^3/uL; Eosinophils% 0.5 % (0-5); Hemoglobin 13.5 g/dL (12.0-15.0); Lymphocyte # 1.22 X10^3/ul (0.83-4.51); Lymphocyte % 10.4 % (19-41); Mean Corp Hgb Conc 33.8 g/dL (32-36); Mean Platelet Vol. 13.3 fl (6.2-12.0); Monocyte# 0.62 X10^3/uL; Monocyte% 5.3 % (0-10); NRBC Flagged by Analyzer 0 % (0-5); Neutrophil # 9.68 X10^3/uL (2.7-7.7); Platelet Count 134 K/mm3 (150-450); RBC Distribution Width CV 12.5 % (11.6-14.6); RBC Distribution Width SD 42.1 fl (35.1-43.9); Red Blood Count 4.35 M/mm3 (4.2-5.4); White Blood Count 11.7 K/mm3 (4.4-11.0)
[2024-08-17 11:11] LABS: Internal QC Validated? YES +Cl - CLEAR BKGD; Pregnancy, Urine Negative Negative
[2024-08-17 11:14] LABS: Anion Gap 6 (5-15); BUN 11 mg/dL (7-18); BUN/Creat Ratio 14.1 RATIO (10-20); Calcium,Total 8.9 mg/dL (8.5-10.1); Chloride 108 mmol/L (98-107); Creatinine, Serum 0.78 mg/dL (0.55-1.02); EST Glomerular Filtration Rate 91 mL/min (>60); Est Glom Filt Rate - Afr Amer 110 mL/min (>60); Estimated Creatinine Clearance 86.45 ml/min; Glucose 95 mg/dL (74-106); Potassium 3.5 mmol/L (3.5-5.1); Sodium Level 137 mmol/L (136-145)
== END 2024-08-17 12:19 | disposition home or self-care (01) ==
PROVIDERS: Emergency Provider Emergency Medicine; PCP Nurse Practitioner Primary Care; Visit Provider Emergency Medicine
DX: R10.9 Unspecified abdominal pain (principal); N83.202 Unspecified ovarian cyst, left side; Z87.891 Personal history of nicotine dependence
CPT/HCPCS: 74177; 80048; 81025; 85025; 99283; Q9967; A4216